=== PATIENT | male | born 1950 | race Caucasian/White ===

== ENCOUNTER → 2018-03-08 09:00 | Outpatient (CLI) | payer OTHER, SELFPAY ==
--- NOTE | 2018-03-09 11:32 | ONE_ITS ---
OCCUPATIONAL MEDICINE OFFICE NOTE DATE OF SERVICE: March 08, 2018 ASSESSMENT: Left shoulder pain. EDUCATION: 1. Good improvement noted. 2. MRI indicated to rule out significant tear that may require surgical intervention. PLAN: 1. Work restrictions per Work Status Form. 2. OTC Advil. 3. Left shoulder MRI. 4. Ativan 1 mg p.o. one hour before MRI. May repeat once with 1 mg if anxiety remains immediately prior to appointment. Script provided. 5. Continue PT. 6. Follow-up Occupational Medicine in 2 weeks; return to clinic sooner if condition worsens. More than 50% of this visit spent in the planning and coordination of care. Plan of care reviewed with patient, who verbalized understanding and agreement. ++++++++++++++++++++ CHIEF COMPLAINT: Left shoulder pain, right hand dominant. 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 SUBJECTIVE: Cody presents for a follow-up appointment for left shoulder pain. Working under work restrictions without difficulty. States he is ten times better compared to his last appointment. Has had approximately six PT appointments, which he thinks have been beneficial; is now able to bring his hand to his mouth. Discomfort is now intermittent and less intense, however if he moves his arm away from his body or over his head the discomfort increases significantly. Self-medicating with two Aleve in the mornings and evenings. Sleep pattern is normal if he sleeps in a chair; his normal sleep position is on his abdomen, which now increases his shoulder discomfort. Sleeping on his back worsens his COPD. Cody does have a history of muscular dystrophy. His left shoulder has always been weaker than his right. His normal posture is stooped over with his shoulder height being uneven. Had routine appointment with his PCP on 03/06/18. REVIEW OF SYSTEMS: Denies chest pain, palpitations. Denies headaches, visual changes. Denies GI, dysfunction. Positive history of shortness of breath. PAST MEDICAL HISTORY Chronic obstructive pulmonary disease. Umbilical hernia surgery x2 around 2004 and 2009. Appendectomy 2017. Eye trauma. Muscular dystrophy for 20 years. Obesity. MEDICATIONS Sertraline for the past six years. ALLERGIES None. SOCIAL HISTORY: Lives with his 90-year-old mother. OBJECTIVE: GENERAL: 67 yo white male. Alert, oriented x3, cooperative. Shoulder height remains significantly unequal, kyphotic posture. LEFT SHOULDER: Bony prominences remain nontender; musculature tenderness now limited to inferiorly of clavicle; regions superiorly of clavicle, periscapular region and anterior deltoid no longer tender. TESTS: Ceron remains positive. RANGE OF MOTION: Extension no longer yields pinching sensation. Abduction and flexion have increased, but is limited to 80 degrees to discomfort. Demonstrated ability to lift 1-pound weight, which yielded slight discomfort; 3-pound increased shoulder discomfort. DIAGNOSTIC IMAGIN02/16/18 left shoulder RAD - no acute fracture or dislocation is seen. Mild degenerative changes are seen at the acromioclavicular joint. The soft tissues are unremarkable. Impression - no acute fracture or dislocation.
== END ==
PROVIDERS: PCP Family Medicine Adult Medicine; Visit Provider Nurse Practitioner Family
DX: M25.512 Pain in left shoulder (principal); M19.012 Primary osteoarthritis, left shoulder; R29.3 Abnormal posture
CPT/HCPCS: 99214

== ENCOUNTER → 2018-03-23 09:38 | Outpatient (CLI) | payer OTHER, SELFPAY ==
--- NOTE | 2018-03-23 16:17 | ONE_ITS ---
DATE OF SERVICE: March 23, 2018 CHIEF COMPLAINT: Left shoulder pain; right hand dominant. 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 ASSESSMENT: Left shoulder pain, rule out rotator cuff tear. EDUCATION: 1. Continued improvement noted. 2. MRI indicated to rule out significant tear that may require surgical intervention. Cody voiced he prefers not to have surgery. PLAN: 1. Work restrictions per Work Status Form. 2. OTC Advil p.r.n. 3. Left shoulder MRI 03/26/18 at 1500. 4. Ativan 1 mg p.o. one hour before MRI. May repeat once with 1 mg if anxiety remains immediately prior to appointment. Transportation required after MRI. 5. Continue PT. 6. Follow-up Occupational Medicine one week; return to clinic sooner if condition worsens. More than 50% of this visit spent in the planning and coordination of care. Plan of care reviewed with patient, who verbalized understanding and agreement. +++++++++++++++++ SUBJECTIVE: Cody presents for follow-up appointment for left shoulder pain. Working under work restrictions without difficulty. Continued improvement noted. Physical therapy has been very helpful. In spite of progress, Cody states he is still unable to use his left upper extremity to pull his seatbelt down in his vehicle. Additionally, he is limited in how far he can move his arm away from his torso without increasing his discomfort. Sleeping in bed is difficult; however he is able to obtain restful sleep in a chair. Last night he awakened only once. Has not been self-medicating with Advil. Cody has a history of muscular dystrophy; his left shoulder has always been weaker than his right. His normal posture is stooped over with his shoulder height being uneven. REVIEW OF SYSTEMS: Denies chest pain, palpitations. Denies headaches, visual changes. Denies GI, dysfunction. Positive history of shortness of breath. PAST MEDICAL HISTORY Chronic obstructive pulmonary disease. Umbilical hernia surgery x2 around 2004 and 2009. Appendectomy 2017. Eye trauma. Muscular dystrophy for 20 years. Obesity. MEDICATIONS Sertraline for the past six years. ALLERGIES None. SOCIAL HISTORY: Lives with his 90-year-old mother. OBJECTIVE: GENERAL: 67-year-old white male. Alert, oriented x3, cooperative. Shoulder height remains significantly unequal with kyphotic posture. LEFT SHOULDER: Musculature tenderness remains limited to inferiorly of clavicle and some discomfort has returned superiorly of clavicle. Periscapular region and anterior deltoid remain nontender. TESTS: Ceron remains positive. ROM and extension without difficulty or discomfort. Abduction and flexion is limited to 30 degrees due to discomfort. Demonstrated ability to lift 1-3-5 pound weight without discomfort; 10 pound yielded slight discomfort.
== END ==
PROVIDERS: PCP Family Medicine Adult Medicine; Visit Provider Nurse Practitioner Family
DX: M25.512 Pain in left shoulder (principal); M19.012 Primary osteoarthritis, left shoulder; R29.3 Abnormal posture
CPT/HCPCS: 99214

== ENCOUNTER → 2018-03-26 01:55 | Outpatient (CLI) | payer OTHER, SELFPAY ==
--- NOTE | 2018-03-26 15:30 | DI.REPORT_ITS ---
SYMPTOM/DIAGNOSIS: LT SHOULDER PAIN, H/O INJURY, DECREASED RANGE OF MOTION LEFT SHOULDER MRI: Comparison is made with plain films dated 02/16/18. Proton density and fat suppressed T 2 axial and coronal and T 1 and fat suppressed T 2 sagittal sequences were performed. There are degenerative changes of the AC joint with prominent spurring projecting greater superiorly. There is a full thickness tear of the supraspinatus tendon with retraction to the level of the acromion. There is some spurring at the undersurface of the acromion. There is supraspinatus muscle atrophy. There is also muscle atrophy involving the infraspinatus which is also torn and retracted to the same level. There is a small joint effusion. The subscapularus tendon appears intact. The short head of the biceps tendon appears intact. There is some thinning of the long head of the biceps tendon which is not well seen on the axial images. There is a moderate sized joint effusion. There are degenerative changes of the labrum, greatest anteriorly and inferiorly. A subchondral cyst is seen in the humeral head. IMPRESSION: Full thickness tears with retraction and muscular atrophy involving the supraspinatus and infraspinatus. The long head of the biceps tendon appears thinned and could be partially torn.
== END ==
PROVIDERS: PCP Family Medicine Adult Medicine; Visit Provider Nurse Practitioner Family
DX: M25.512 Pain in left shoulder (principal); M25.812 Other specified joint disorders, left shoulder; M75.102 Unspecified rotator cuff tear or rupture of left shoulder, not specified as traumatic
CPT/HCPCS: 73221

== ENCOUNTER → 2018-03-30 09:39 | Outpatient (CLI) | payer OTHER, SELFPAY ==
--- NOTE | 2018-04-02 10:01 | ONE_ITS ---
DATE OF SERVICE: March 30, 2018 CHIEF COMPLAINT: Left shoulder pain; right hand dominant. 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 ASSESSMENT: Left rotator cuff tear. PLAN: 1. Work restrictions per Work Status Form. 2. OTC Advil. 3. Ortho referral. 4. Continue PT. 5. Follow-up Occupational Medicine in two weeks; return to clinic sooner if condition worsens. More than 50% of this visit spent in the planning and coordination of care. Plan of care reviewed with patient, who verbalized understanding and agreement. +++++++++++++++++ SUBJECTIVE: On 01/31/18 Cody tripped over a pallet at work and landed on his left shoulder. He was not able to stand without assistance so his co-worker helped him angelita. Cody assessed his shoulder by tapping it and did not think he had done significant harm. Today Cody presents for a follow-up appointment for his left shoulder pain, he has been seen twice previously. He continues to work under work restrictions without difficulty. Continued improvement noted, however he is unable to perform overhead activities with his left upper extremity. Last night was the first night he was able to sleep in his bed. He propped pillows which mimicked a reclining chair. Cody slept throughout the night and this morning he awakened without discomfort and was sleeping in his normal sleep position. Cody does have a history of muscular dystrophy; his left shoulder has always been weaker than his right; his normal posture is stooped over with his shoulder height being uneven. REVIEW OF SYSTEMS: Denies chest pain, palpitations. Denies headaches, visual changes. Denies GI, dysfunction. Positive history of shortness of breath. PAST MEDICAL HISTORY Chronic obstructive pulmonary disease. Umbilical hernia surgery x2 around 2004 and 2009. Appendectomy 2017. Eye trauma. Muscular dystrophy for 20 years. Obesity. MEDICATIONS Sertraline for the past six years. ALLERGIES None. SOCIAL HISTORY: Lives with his 90-year-old mother. OBJECTIVE: Cody is a 67-year-old white male. He is alert, oriented x3 and cooperative. His shoulder height remains significantly unequal and he has a kyphotic posture. We reviewed the findings of the MRI, which indicated a tear. Even though he is not in favor of a surgical repair, I strongly encouraged him to be seen by Ortho so they can properly advise them of the risks and benefits of his decision; Cody was in agreement to see Ortho. The first available appointment for Cody is May 07, 2018. After a discussion with Ortho, they offered to contact Cody to discuss options and hopefully be able to see him earlier than May 07. While awaiting his Ortho appointment, Cody was encouraged to continue with PT to ensure his range of motion does not become restricted from decreased usage and to maintain his strength; Cody was in agreement to continue to see PT. PT was contacted after this appointment to explain the plan of care. A follow-up appointment in Occupational Medicine was given for 04/13/18 to assess if his condition is worsening. His appointment can be cancelled if he has seen Ortho within that timeframe. DIAGNOSTIC IMAGIN03/26/18 left shoulder MRI impression - full-thickness tears with retraction and muscular atrophy involving the supraspinatus and infraspinatus. The long head of the biceps tendon appears thinned and could be partially torn.
== END ==
PROVIDERS: PCP Family Medicine Adult Medicine; Visit Provider Nurse Practitioner Family
DX: M25.512 Pain in left shoulder (principal); M75.102 Unspecified rotator cuff tear or rupture of left shoulder, not specified as traumatic
CPT/HCPCS: 99214

== ENCOUNTER 2018-05-04 08:57 | Emergency (ER) | payer OTHER, SELFPAY ==
[2018-05-04 09:02] VITALS: BP 136/97; PULSE 66; RESP 18; TEMP 36.8
[2018-05-04 09:22] VITALS: BP 132/86; PULSE 71; RESP 16; O2SAT 94
--- NOTE | 2018-05-04 09:46 | W.ED.GENAD ---
Discharge Plan Disposition Patient Disposition: HOME Condition: Improving Discharge Details Chief Complaint: Abd Prob Clinical Impression: Abdominal wall bulge Primary Care Provider: Gadiel Rainey ED Provider: Soco Jenkins Home Meds and New Rx's Prescriptions: Continue albuterol sulfate [ProAir HFA] 90 mcg/actuation HFA aerosol inhaler 1 puff IH QID RF: 0 tiotropium bromide [Spiriva Respimat] 1.25 mcg/actuation mist 2 puff IH DAILY RF: 0 aspirin 81 mg Tablet,Chewable 81 mg PO DAILY RF: 0 Discharge Instructions Instructions: Abdominal Pain (ED), Ventral Hernia (ED) Additional Instructions: You were noted to have a normal abdominal exam today. It is possible that you have a reducible abdominal wall hernia that resolved on its own. If it recurs again, attempt to lay down to see if it resolves again. You can also try ice, Tylenol or Motrin. If it returns and does not resolve or you have significant pain, fever, nausea or vomiting, return immediately to the emergency department. Otherwise follow-up with your primary care doctor in 1 week for reevaluation and for referral to surgery at the [facility] if needed. Referrals: Lindsey Godinez MD [ [facility] STAFF PHYSICIAN] - Discharge Data Discharge Date/Time-TO BE ENTERED AT DEPARTURE: 05/04/18 09:58 Discharge Physician: Soco Jenkins Medical Decision Making Patient is a 67-year-old male with history of COPD, anxiety, depression with previous history of appendectomy 1 year ago, and approximately for inguinal hernia repairs, last occurring 5 years ago who presents with a painful bulge in his left upper abdomen that started at 7:15 AM and is now resolved. States it lasted approximately 2 hours and then resolved and states now I feel foolish that I came here. Vitals within normal limits. He is afebrile with normal heart rate. Patient appears nontoxic and in no acute distress. Abdomen soft and nontender without mass, skin changes, rigidity or tenderness noted. Normal exam. Ambulated patient around the room to see if mass or bulge returned and no change in exam and patient feels good. Explained to patient that with his previous history of abdominal surgeries, a report of a painful bulge in the abdomen does appear most consistent with a hernia. As his symptoms are completely resolved, the hernia likely reduce. Also explained to patient that abdominal pain could possibly be from another source but as his pain is completely resolved I do not see any indication for further lab work or imaging and patient is agreeable and he is requesting to go home. [facility] is followed [facility] the [facility]. He is instructed to follow-up with his primary care doctor at the [facility] and for referral to surgery if he has any further questions or concerns about a possible hernia. He is instructed to lay down, apply ice, and take Motrin or Tylenol if pain or possible hernia returns and to return here immediately to the emergency department if hernia does not reduce, he develops fever, nausea, vomiting or significant pain. HPI General Mode of arrival: ambulatory. Date/Time Provider Initiated Documentation: 05/04/18 09:18. Limitations to Documentation: no limitations. Information obtained by: patient. HPI Narrative: Patient is a 67-year-old male with history of COPD, anxiety, depression with previous history of appendectomy 1 year ago, and approximately for inguinal hernia repairs, last occurring 5 years ago who presents with a painful bulge in his left upper abdomen that started at 7:15 AM and is now resolved. States it lasted approximately 2 hours and then resolved and states now I feel foolish that I came here. He denies fever, nausea, vomiting, diarrhea, chest pain, shortness of breath, rectal bleeding, urinary symptoms. 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 Past medical history: COPD, Anxiety, Depression Surgical history: Appendectomy, Multiple inguinal hernia repairs, L Rotator cuff repair Social history: Former tobacco smoker, Former ETOH use, Denies drugs Meds: Albuterol, aspirin, Spiriva, Symbicort Allergies: None PCP: Mandi NEAL Related Data Home Medications Medication Instructions Recorded Confirmed albuterol sulfate HFA 90 1 puff IH QID 04/30/18 05/04/18 mcg/actuation aerosol inhaler tiotropium bromide 1.25 2 puff IH DAILY 04/30/18 05/04/18 mcg/actuation mist for inhalation aspirin 81 mg PO DAILY 05/04/18 05/04/18 Allergies Allergy/AdvReac Type Severity Reaction Status Date / Time No Known Allergies Allergy Verified 05/04/18 09:07 General Stated Complaint: Abd Prob PANCHO: 3 Review of Systems Review of Systems All systems reviewed & are unremarkable except as noted in HPI and below Constitutional Denies chills, Denies excessive sweating, Denies fatigue, Denies fever(s), Denies weakness and Denies weight loss Eyes Reports system reviewed and no additional complaints, except as docu and Denies blurry vision ENT Denies vertigo, Denies dizziness, Denies otalgia, Denies nasal congestion, Denies sore throat and Denies throat swelling Cardiovascular Denies chest pain, Denies syncope, Denies rapid heart rate and Denies dyspnea Respiratory Denies dyspnea Gastrointestinal Denies abdominal pain, Denies diarrhea and Denies vomiting Genitourinary Denies hematuria, Denies dysuria and Denies flank pain Musculoskeletal Denies back pain and Denies joint swelling Integumentary/Breasts Denies lesions and Denies rash Neurologic Denies behavioral changes, Denies confusion, Denies vertigo, Denies dizziness, Denies syncope and Denies weakness Psychiatric Denies behavioral changes, Denies confusion and Denies depression Endocrine Denies excessive sweating and Denies fatigue Hematologic/Lymphatic Denies easy bruising and Denies lymphadenopathy Allergic/Immunologic Denies throat swelling PFSH Medical History Fascioscapulohumeral muscular dystrophy (Chronic) Anxiety and depression (Acute) Eye trauma (Acute) Muscular dystrophy (Acute) Overweight (Acute) Umbilical hernia (Acute) COPD (chronic obstructive pulmonary disease) (Chronic) Social History lives independently: Yes 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 Smoking/Tobacco Use Status: Former Tobacco Use how long ago did patient quit smokin alcohol intake: former details: quit 1987 Surgical History History of appendectomy (Chronic) Exam Const General: cooperative and healthy appearing Orientation: alert and awake [facility] Head: normal to inspection Ears: hearing grossly normal bilaterally, external ears normal and TM's normal bilaterally General nose exam: external nose normal Face and sinus: normal facial exam Mouth: oral mucosae normal Teeth and gingiva: dentition normal Throat: posterior oropharynx normal Eyes General: appearance normal, both eyes and all related structures Eyelids: eyelids normal Pupils: PERRL EOM: EOM intact bilaterally Neck Neck: normal visual inspection Lymphatic: no lymphadenopathy noted Chest Chest: normal inspection of the chest Resp Effort & Inspection: normal respiratory effort and able to speak in complete sentences Auscultation: clear to auscultation bilaterally Cardio Rate: regular rate Rhythm: regular rhythm GI Inspection: normal to inspection, no edema, scar (Midline abdominal scar just above umbilicus.) and other (No skin changes noted, no erythema, ecchymosis, red streaking) Palpation: soft, not firm, no guarding, no hepatosplenomegaly, no hernias, no masses, no pulsatile masses, not rigid and nontender Auscultation: normal bowel sounds Penis: normal penis Scrotum: scrotum normal Testes: normal, no masses, no testicular mass and no testicular swelling Back/Spine/Pelvis Back: no CVA tenderness Skin General skin exam: no rashes or lesions noted Neuro General: alert and awake Cognition: normal cognition Speech: speech normal Gait: normal gait Motor: muscle tone normal throughout Sensory Exam: no sensory deficits noted Extrem General: normal to inspection, full ROM and normal capillary refill Psych Appearance: grossly normal Mental Status: mental status grossly normal Speech and Movement: speech and movement normal Affect: normal affect Thought Process: normal Course Vital Signs Temperature 98.2 F 05/04/18 09:02 Pulse 66 05/04/18 09:02 Respiratory Rate 18 05/04/18 09:02 Blood Pressure 136/97 H 05/04/18 09:02 Temperature 98.2 F 05/04/18 09:02 Temperature Source Temporal Artery Scan 05/04/18 09:22 Pulse 71 05/04/18 09:22 Respiratory Rate 16 05/04/18 09:22 Respiratory Effort 05/04/18 09:05 Blood Pressure 132/86 05/04/18 09:22 Blood Pressure Position Supine 05/04/18 09:02 Pulse Oximetry 94 L 05/04/18 09:22 Oxygen Delivery Method Room Air 05/04/18 09:22 Oxygen Flow Rate 0 05/04/18 09:22 Pain Level 6 05/04/18 09:02
[2018-05-04 09:47] VITALS: TEMP 37
[2018-05-04 09:55] VITALS: BP 135/80; PULSE 88; RESP 18; TEMP 36.8; O2SAT 99
== END 2018-05-04 09:58 | disposition home or self-care (01) ==
PROVIDERS: Emergency Provider Physician Assistant; PCP Family Medicine Adult Medicine
DX: R19.02 Left upper quadrant abdominal swelling, mass and lump (principal); J44.9 Chronic obstructive pulmonary disease, unspecified; Z87.891 Personal history of nicotine dependence
CPT/HCPCS: 99282

== ENCOUNTER 2020-03-09 23:24 | Emergency (ER) | payer OTHER, SELFPAY ==
[2020-03-09 23:27] VITALS: BP 115/58; PULSE 87; RESP 16; TEMP 36.7; O2SAT 93
--- NOTE | 2020-03-09 23:30 | DI.CT_ITS ---
EXAM: CT ABDOMEN PELVIS W CLINICAL HISTORY: hard R paraumbilical hernia. r/o strangulation TECHNIQUE: COMPARISON: No exams were available for comparison FINDINGS: CT examination of the abdomen and pelvis was performed with bolus infusion of 100 cc of Omnipaque 350 . Images obtained through the lung bases show mild cardiomegaly and coronary artery calcification. There are areas of atelectasis in the left lung base. There is marked gastric distention and marked fluid-filled distention of proximal to mid small bowel. There is a ventral hernia in the right lower quadrant and this appears to cause a small bowel obstr uction. The efferent loop is nondilated and the afferent loop is markedly dilated. No evidence of p erforation. No necrotic bowel seen. Colon contains small amount of fecal material. There are multiple bilateral renal cysts and multiple nonobstructing left renal calculi. No urinary tract obstruction. Abdominal aorta is of normal diameter and no major vascular abnormality is seen. Liver and spleen appear normal as does the pancreas. Gallbladder and bile ducts are CT normal. No significant abdominal or pelvic adenopathy. Appendix has probably been surgically removed as there are multiple vascular clips clips at the expec karlee site of the appendix. IMPRESSION: Mechanical small-bowel obstruction at the level of a right para median ventral hernia. Please see ab bolivar discussion.
--- NOTE | 2020-03-09 23:35 | ED.GENADUL_ITS ---
Discharge Plan Disposition Patient Disposition: [facility] INPATIENT Condition: Stable Discharge Details Chief Complaint: Abd Prob Clinical Impression: Incarcerated hernia, Small intestine obstruction Primary Care Provider: Gadiel Rainey ED Provider: Jovan Barraza Home Meds and New Rx's Prescriptions: No Action albuterol sulfate [ProAir HFA] 90 mcg/actuation HFA aerosol inhaler 1 puff IH QID RF: 0 Spiriva Respimat 1.25 mcg/actuation mist 2 puff IH DAILY RF: 0 aspirin 81 mg Tablet,Chewable 81 mg PO DAILY RF: 0 sertraline 25 mg Tablet 75 mg PO DAILY RF: 0 Medical Decision Making 69-year-old male with a past medical history of appendectomy, previous inguinal hernias that were surgically repaired, and known umbilical hernias, presents today for evaluation of right sided umbilical pain. Patient states that roughly 7 to 8 hours ago he was at a gas station when he felt a sudden bit of sharp pain in the right paraumbilical region. He had a lump there in the past for some time, but it was never painful and it would always come and go. Since then he has had continued pain, worsening throughout the night, no bowel movements, no episodes of vomiting either though. He is only eaten a cookie all day long. He denies any other complaints at this time. No aggravating or relieving factors. Physical exam demonstrates a notably firm tender nonreducible mass the right aspect of the periumbilical region. It is not erythematous, it is not atypically hot. However upon trial for reduction it is notably sore. Concern for strangulated or incarcerated hernia. Will treat with pain medications, apply ice, place the patient in Trendelenburg, get a CT scan, monitor closely and reassess. 1:13 AM After NSAIDs and morphine the patient is resting very comfortably. Still completely unable to reduce the hernia after multiple attempts ice and Trendelenburg. CT scan results have returned and do demonstrate evidence of mild fat stranding, and incarcerated hernia with obstruction proximally in the bowel and no dilatation distally. Patient remained stable and has kept down his contrast fluid. Vital signs and laboratory work-up is otherwise unremarkable, lactate normal. I did contact the surgeon on-call Dr. Godinez, she states that she will come in to see and assess the patient. [facility], but does make clear that he would prefer to stay here. [facility] to make [facility] aware [facility] this, they have agreed with him stay here at this time. 2:01 AM Patient has been seen and assessed by Dr. Godinez, the patient will be taken to the OR for expected surgery. I have extensively reviewed the treatment plan with the patient. I have addressed all patient concerns at this time. I have also discussed the plan with the admitting physician and they agree with the current assessment and plan and have agreed to assume responsibility for the patient. All parties demonstrate verbal understanding and agreement with our assessment and plan at this time. FINDINGS: Liver: No focal hepatic lesions detected. Gallbladder and bile ducts: Unrtemarkable with no calcified stone or ductal dilatation detected. Pancreas: No pancreatic mass or ductal dilation. Spleen: No splenomegaly or splenic mass. Adrenals: No adrenal mass. Kidneys and ureters: A large exophytic fluid attenuation cyst measuring over 11 cm in maximal dimension is seen along the posterolateral margin of the left kidney multiple smaller discrete fluid attenuation cysts renal cysts seen bilaterally. Few calcified 1-3 mm nonobstructing stones are also seen in the left pelvocaliceal system and there is no right or left-sided hydronephrosis detected. Stomach and bowel: Multiple fluid-filled segments of small bowel show abnormal dilatation throughout the abdomen and pelvis measuring up to 4.8 cm in diameter with multiple associated air-fluid levels, and there is a focal right periumbilical hernia defect with a small segment of distal small bowel seen extending through this defect (see image 78, series 7). Gas and stool is seen th roughout nondilated segments of colon with no other abnormal bowel dilatation detected. Stomach and bowel: Unremarkable. No obstruction. No mucosal thickening. Appendix: Surgically absent. Intraperitoneal space: No pneumoperitoneum or free intraperitoneal fluid detected. Vasculature: No abdominal aortic aneurysm Lymph nodes: No lymphadenopathy detected. Bladder: Unremarkable as visualized. Reproductive: Unremarkable as visualized. Bones/joints: No acute osseous lesions are detected. Soft tissues: Unremarkable. IMPRESSION: 1. Focal right periumbilical hernia defect is identified with a short segment of the distal small bowel extending through this defect and associated with mechanical small bowel obstruction. There is no evidence of pneumatosis or perforation at this time. 2. Bilateral renal cysts and a few calcified nonobstructing left-sided renal stones are identified with no solid renal mass or hydronephrosis detected. Thank you for allowing us to participate in the care of your patient. Dictated and Authenticated by: Angelo Jean-Baptiste MD 03/10/2020 1:08 AM Eastern Time ([place] & [place]) HPI General Date/Time Provider Initiated Documentation: 03/09/20 23:26 . HPI Narrative: 69-year-old male with a past medical history of appendectomy, previous inguinal hernias that were surgically repaired, and known umbilical hernias, presents today for evaluation of right sided umbilical pain. Patient states that roughly 7 to 8 hours ago he was at a gas station when he felt a sudden bit of sharp pain in the right paraumbilical region. He had a lump there in the past for some time, but it was never painful and it would always come and go. Since then he has had continued pain, worsening throughout the night, no bowel movements, no episodes of vomiting either though. He is only eaten a cookie all day long. He denies any other complaints at this time. No aggravating or relieving factors. Related Data Home Medications Medication Instructions Recorded Confirmed albuterol sulfate 90 mcg/actuation 1 puff IH QID 04/30/18 03/10/20 aerosol inhaler tiotropium bromide 1.25 2 puff IH DAILY 04/30/18 03/10/20 mcg/actuation mist for inhalation aspirin 81 mg PO DAILY 05/04/18 03/10/20 sertraline 75 mg PO DAILY 03/10/20 03/10/20 Allergies Allergy/AdvReac Type Severity Reaction Status Date / Time No Known Allergies Allergy Verified 03/09/20 23:59 General Stated Complaint: Abd Prob PANCHO: 3 Review of Systems All systems reviewed & are unremarkable except as noted in HPI and below [facility] Medical History Anxiety and depression (Acute) COPD (chronic obstructive pulmonary disease) (Chronic) Eye trauma (Acute) Fascioscapulohumeral muscular dystrophy (Chronic) Muscular dystrophy (Acute) Overweight (Acute) Umbilical hernia (Acute) Surgical History History of appendectomy (Chronic) Social History Smoking/Tobacco Use Status: Former Tobacco Use Alcohol Intake: former Details: quit 1987 Drug use: Never Substance use type: does not use 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 3.ENT: Atraumatic external nose and ears. Moist MM. Neck: Symmetric, trachea midline, No thyromegaly. 4.CVS: +S1/S2, No murmurs or gallops. Peripheral pulses 2+ and equal in all extremities. Brisk capillary refill in all extremities. 5.RESP: Unlabored respiratory effort. Clear to auscultation bilaterally. No wheezes rales or rhonchi 6.GI: Soft, nondistended, 2-3 small lumps periumbilically, all of which are soft and nontender aside for the right paraumbilical lump, which appears to be roughly 2 to 3 cm in diameter, notably firm, nonreducible, tender to palpation with no associated redness. No atypical warmth. 7.MSK: Normocephalic/Atraumatic, Extremities w/o deformity or ttp No cyanosis or clubbing, Normal movement of all extremities 8.Skin: Warm, Dry. No rashes or lesions. 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 Sensation grossly intact, no focal neurologic deficits. 10.Psych: (AAO) x3. Appropriate mood and affect Course Vital Signs Vital signs: Vital Signs Temperature 36.7 C 03/09/20 23:27 Pulse 87 03/09/20 23:27 Respiratory Rate 16 03/09/20 23:27 Blood Pressure 115/58 L 03/09/20 23:27 Pulse Oximetry 93 L 03/09/20 23:27 Temperature 36.7 C 03/09/20 23:27 Temperature Source Temporal Artery Scan 03/09/20 23:27 Pulse 87 03/09/20 23:27 Respiratory Rate 16 03/09/20 23:27 Blood Pressure 115/58 L 03/09/20 23:27 Blood Pressure Position Sitting 03/09/20 23:27 Pulse Oximetry 93 L 03/09/20 23:27 Oxygen Delivery Method Room Air 03/09/20 23:27 Oxygen Flow Rate 0 03/09/20 23:27
[2020-03-09 23:46] LABS: Lactate 0.5 mmol/L (0.6-1.4)
[2020-03-09] MEDS: Normal Saline 500 ML IV (23:47)
[2020-03-09] MEDS: Acetaminophen 500 MG TAB 1000 MG PO (23:47)
[2020-03-09 23:48] LABS: Abs Immature Grans 0.03 10^3/uL (0.0-0.06); Absolute Basophil Count 0.02 10^3/uL (0.0-0.2); Absolute Eosinophil Count 0.17 10^3/uL (0.0-0.7); Absolute Lymphocyte Count 0.93 10^3/uL (1.2-3.4); Absolute Monocyte Count 0.75 10^3/uL (0.1-0.8); Absolute Neutrophil Count 5.11 10^3/uL (1.2-6.7); Basophils % 0.3; Eosinophils % 2.4; HCT 47.1 % (40.0-50.0); HGB 15.5 g/dL (13.5-17.5); Immature Grans % 0.4; Lymphocytes % 13.3; MCH 31.8 pg (27.0-33.0); MCHC 32.9 % (32.0-36.0); MCV 96.7 fL (80-95); MPV 10.3 fL (8.0-11.0); Monocytes % 10.7; Neutrophils % 72.9; Platelet Count 170 10^3/uL (130-400); RBC 4.87 10^6/uL (4.36-5.78); RDW 13.4 % (11.8-14.1); RDW-SD 47.8 fL; WBC 7.01 10^3/uL (4.4-10.8)
[2020-03-10] VITALS (13 sets, daily range): BP systolic 113–125; BP diastolic 69–90; PULSE 56–65; RESP 14; O2SAT 91–96
[2020-03-10 00:03] LABS: ALT 38 U/L (16-63); AST 31 U/L (15-37); Albumin 4.1 g/dL (3.4-5.0); Alkaline Phosphatase 68 U/L (46-116); Anion Gap 8.8 mmol/L (3-11); BUN 20 mg/dL (7-18); Bilirubin, Total 0.9 mg/dL (0.2-1.0); CO2 28.2 mmol/L (21.0-32.0); CREATININE 0.71 mg/dL (0.70-1.30); Calcium 9.5 mg/dL (8.5-10.1); Chloride 104 mmol/L (98-107); Glucose 114 mg/dL (74-106); Potassium 4.3 mmol/L (3.5-5.1); Sodium 141 mmol/L (136-145)
[2020-03-10] MEDS: Omnipaque 350 MG/ML 50 ML BTL IJ (00:13)
[2020-03-10] MEDS: Normal Saline - Diluent 50 ML VIAL IV (00:14)
[2020-03-10] MEDS: Omnipaque 350 MG/ML 100 ML BTL IJ (00:14)
[2020-03-10 00:17] LABS: INR 1.1 (0.9-1.1); PTT Activated 26.1 sec (21.0-31.4); Prothrombin Time 10.7 sec (9.3-11.0)
[2020-03-10] MEDS: Ondansetron 4 MG/2 ML VIAL IVP (00:27)
[2020-03-10] MEDS: Breeza Beverage 473 ML BTL PO (00:39)
--- NOTE | 2020-03-10 01:08 | DI.VRAD_ITS ---
Addendum created by Angelo Jean-Baptiste MD on 03/10/2020 1:08:13 AM EDT THIS REPORT CONTAINS FINDINGS THAT MAY BE CRITICAL TO PATIENT CARE. The findings were verbally communicated via telephone conference with RENO IVNCENT at 1:08 AM EDT on 03/10/2020. The findings were acknowledged and understood. Initial report created on 03/10/2020 1:08:01 AM EDT PROCEDURE INFORMATION: Exam: CT Abdomen And Pelvis With Contrast Exam date and time: 03/09/2020 11:34 PM Age: 69 years old Clinical indication: Abdominal pain; Other: Paraumbilical hernia ? strangulation; Prior surgery; Surgery date: 6+ months; Surgery type: Multiple hernia surgeries. And appendectomy years ago TECHNIQUE: Imaging protocol: Computed tomography of the abdomen and pelvis with intravenous contrast. Radiation optimization: All CT scans at this facility use at least one of these dose optimization techniques: automated exposure control; mA and/or kV adjustment per patient size (includes targeted exams where dose is matched to clinical indication); or iterative reconstruction. Contrast material: OMNI 350; Contrast volume: 100 ml; Contrast route: INTRAVENOUS (IV); Other contrast: Oral, omni 350 , 50; COMPARISON: No relevant prior studies available. FINDINGS: Liver: No focal hepatic lesions detected. Gallbladder and bile ducts: Unrtemarkable with no calcified stone or ductal dilatation detected. Pancreas: No pancreatic mass or ductal dilation. Spleen: No splenomegaly or splenic mass. Adrenals: No adrenal mass. Kidneys and ureters: A large exophytic fluid attenuation cyst measuring over 11 cm in maximal dimension is seen along the posterolateral margin of the left kidney multiple smaller discrete fluid attenuation cysts renal cysts seen bilaterally. Few calcified 1-3 mm nonobstructing stones are also seen in the left pelvocaliceal system and there is no right or left-sided hydronephrosis detected. Stomach and bowel: Multiple fluid-filled segments of small bowel show abnormal dilatation throughout the abdomen and pelvis measuring up to 4.8 cm in diameter with multiple associated air-fluid levels, and there is a focal right periumbilical hernia defect with a small segment of distal small bowel seen extending through this defect (see image 78, series 7). Gas and stool is seen throughout nondilated segments of colon with no other abnormal bowel dilatation detected. Stomach and bowel: Unremarkable. No obstruction. No mucosal thickening. Appendix: Surgically absent. Intraperitoneal space: No pneumoperitoneum or free intraperitoneal fluid detected. Vasculature: No abdominal aortic aneurysm Lymph nodes: No lymphadenopathy detected. Bladder: Unremarkable as visualized. Reproductive: Unremarkable as visualized. Bones/joints: No acute osseous lesions are detected. Soft tissues: Unremarkable. IMPRESSION: 1. Focal right periumbilical hernia defect is identified with a short segment of the distal small bowel extending through this defect and associated with mechanical small bowel obstruction. There is no evidence of pneumatosis or perforation at this time. 2. Bilateral renal cysts and a few calcified nonobstructing left-sided renal stones are identified with no solid renal mass or hydronephrosis detected. Dictated and Authenticated by: Angelo Jean-Baptiste MD. Ordering:REEMA Aldana MD
--- NOTE | 2020-03-10 01:17 | NUR.NOTE ---
Nursing Note: Patient placed on 2L of oxygen via nasal cannula as sats hold at 88% with rest at this time. Patient does report painful to breath. Dr Barraza notified.
[2020-03-10] MEDS: AMPICILLIN/SULBACTAM 3 GM in Normal Saline 100 ML IVPB (02:25)
--- NOTE | 2020-03-10 02:27 | W.PM.HP.N ---
Date of service: 03/10/20 Time of Service: 02:28 Assessment and Plan Assessment and plan (1) Incarcerated hernia: Status: Acute Assessment and plan: A\\ 69 year old male with a recurrent umbilical hernia which is incarcerated. He doesnt remember if he had a mesh placed. CT scan shows dilated small bowel up to the hernia defect. There is decompressed bowel after the hernia. There is no pneumatosis or fluid around the bowel within the hernia and his Lactate is normal Unfortunately patient has an EF of 34% on his ECHO from December/2019 and has hx of severe COPD. 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 He is a high risk patient and I feel he needs to be transfered to the [facility] or [facility]. This was discussed with the patient and I am waiting for a call back from the [facility]. The [facility] surgeon declined transfer as they have no cardiology at night. Called [facility] and they have graciously accepted the patient in transfer. Transfer discussed with the patient and he agrees with transfer (2) COPD (chronic obstructive pulmonary disease): Status: Chronic Assessment and plan: A\\ Severe COPD on several inhalors. Patient has prolonged expiration while breathing Qualifiers: COPD type: unspecified COPD Qualified Code(s): J44.9 - Chronic obstructive pulmonary disease, unspecified (3) Left heart failure with left ejection fraction 30-40 percent: Status: Acute Assessment and plan: A\\ ECHO from December 2019 showes Mitral regurge, low EF of 34% with severe dilatation of his left ventricle. History of Present Illness History of Present Illness Chief Complaint: incarcerated hernia Consults Consult date: 03/10/20 Requesting physician: Jovan Barraza Narrative: Mr. Foster is a pleasant 69 year old male who comes in today with abdominal pain. He has had multiple hernia repairs in the past. He thinks he has mesh in place. He started to have pain today. He denies any Nausea or Vomiting. His PMHx is significant for Cardiomyopathy. Per patient the bottom of my heart is big. He tells me that he had a resent ECHO and is going to have another one in the near future. He is on a medicine for his heart, but can't remember the name. He also has severe COPD. He is pursing his lips to breath. His PSHx is significant for Laparoscopic appendectomy, inguinal hernia repairs and umbilical repair. Labs are unremarkable. Lactate is normal and he has no elevated WBC count CT scan: PROCEDURE INFORMATION: Exam: CT Abdomen And Pelvis With Contrast Exam date and time: 03/09/2020 11:34 PM Age: 69 years old Clinical indication: Abdominal pain; Other: Paraumbilical hernia ? strangulation; Prior surgery; Surgery date: 6+ months; Surgery type: Multiple hernia surgeries. And appendectomy years ago TECHNIQUE: Imaging protocol: Computed tomography of the abdomen and pelvis with intravenous contrast. Radiation optimization: All CT scans at this facility use at least one of these dose optimization techniques: automated exposure control; mA and/or kV adjustment per patient size (includes targeted exams where dose is matched to clinical indication); or iterative reconstruction. Contrast material: OMNI 350; Contrast volume: 100 ml; Contrast route: INTRAVENOUS (IV); Other contrast: Oral, omni 350 , 50; COMPARISON: No relevant prior studies available. FINDINGS: Liver: No focal hepatic lesions detected. Gallbladder and bile ducts: Unrtemarkable with no calcified stone or ductal dilatation detected. Pancreas: No pancreatic mass or ductal dilation. Spleen: No splenomegaly or splenic mass. Adrenals: No adrenal mass. Kidneys and ureters: A large exophytic fluid attenuation cyst measuring over 11 cm in maximal dimension is seen along the posterolateral margin of the left kidney multiple smaller discrete fluid attenuation cysts renal cysts seen bilaterally. Few calcified 1-3 mm nonobstructing stones are also seen in the left pelvocaliceal system and there is no right or left-sided hydronephrosis detected. Stomach and bowel: Multiple fluid-filled segments of small bowel show abnormal dilatation throughout the abdomen and pelvis measuring up to 4.8 cm in diameter with multiple associated air-fluid levels, and there is a focal right periumbilical hernia defect with a small segment of distal small bowel seen extending through this defect (see image 78, series 7). Gas and stool is seen throughout nondilated segments of colon with no other abnormal bowel dilatation detected. Stomach and bowel: Unremarkable. No obstruction. No mucosal thickening. Appendix: Surgically absent. Intraperitoneal space: No pneumoperitoneum or free intraperitoneal fluid detected. Vasculature: No abdominal aortic aneurysm Lymph nodes: No lymphadenopathy detected. Bladder: Unremarkable as visualized. Reproductive: Unremarkable as visualized. Bones/joints: No acute osseous lesions are detected. Soft tissues: Unremarkable. IMPRESSION: 1. Focal right periumbilical hernia defect is identified with a short segment of the distal small bowel extending through this defect and associated with mechanical small bowel obstruction. There is no evidence of pneumatosis or perforation at this time. 2. Bilateral renal cysts and a few calcified nonobstructing left-sided renal stones are identified with no solid renal mass or hydronephrosis detected Review of Systems Constitutional Constitutional: Denies fatigue, Denies fever(s) and Denies headache(s) Eyes Eyes: Denies change in vision ENT Ears, Nose, Mouth, and Throat: Denies dysphagia, Denies headache(s) and Denies hoarseness Cardiovascular Cardiovascular: Reports as per HPI Respiratory Respiratory: Reports as per HPI Gastrointestinal Gastrointestinal: Reports as per HPI and Denies dysphagia Genitourinary Genitourinary: Denies oliguria and Denies difficulty urinating Musculoskeletal Musculoskeletal: Reports system reviewed and no additional complaints, except as documented Integumentary/Breasts Skin/Breast: Reports system reviewed and no additional complaints, except as documented Neurologic Neurologic: Reports system reviewed and no additional complaints, except as documented and Denies headache(s) Psychiatric Psychiatric: Reports system reviewed and no additional complaints, except as documented Endocrine Endocrine: Reports system reviewed and no additional complaints, except as documented and Denies fatigue Hematologic/Lymphatic Hematologic/Lymphatic: Reports system reviewed and no additional complaints, except as documented [facility] Medical History (Updated 03/10/20 @ 03:07 by Lindsey Godinez MD) Acquired talipes planus (Acute) Anxiety and depression (Acute) BPH without urinary obstruction (Acute) COPD (chronic obstructive pulmonary disease) (Chronic) Dystrophia unguium (Acute) Eye trauma (Acute) 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) Left heart failure with left ejection fraction 30-40 percent (Acute) Left rotator cuff tear (Inactive) DOI: 01/31/18 Left rotator cuff tear arthropathy (Inactive) Mitral regurgitation (Chronic) Muscular dystrophy (Acute) Neuropathy (Acute) Other intervertebral disc degeneration, lumbosacral region (Acute) Overweight (Acute) Umbilical hernia (Acute) Surgical History (Updated 03/10/20 @ 03:07 by Lindsey Godinez MD) History of appendectomy (Chronic) History of incisional hernia repair (Acute) S/P bilateral inguinal hernia repair (Inactive) Social History Smoking/Tobacco Use Status: Former Tobacco Use Alcohol Intake: former Details: quit 1987 Drug use: Never Substance use type: does not use 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 Do you feel safe at home: Yes Do you feel safe in your relationship?: Yes Meds Home Medications and Allergies Home Medications Medication Instructions Recorded Confirmed Type albuterol sulfate 90 mcg/actuation 1 puff IH QID 04/30/18 03/10/20 History aerosol inhaler aspirin 81 mg PO DAILY 05/04/18 03/10/20 History alfuzosin 10 mg PO DAILY 03/10/20 03/10/20 History budesonide-formoterol 2 puff INHALATION BID 03/10/20 03/10/20 History furosemide 20 mg PO DAILY 03/10/20 03/10/20 History ipratropium-albuterol 3 ml INHALATION TID PRN 03/10/20 03/10/20 History lanolin [id number]-jj-p.pet-ceres 1 applic TOPICAL BID PRN 03/10/20 03/10/20 History [Eucerin] lisinopril 5 mg PO DAILY 03/10/20 03/10/20 History metoprolol succinate 25 mg PO DAILY 03/10/20 03/10/20 History sertraline 75 mg PO DAILY 03/10/20 03/10/20 History tiotropium bromide 2 puff INHALATION DAILY 03/10/20 03/10/20 History Allergies Allergy/AdvReac Type Severity Reaction Status Date / Time No Known Allergies Allergy Verified 03/09/20 23:59 Exam Const General: cooperative, comfortable and no acute distress Orientation: alert, awake and oriented x3 HENMT Head: normocephalic and atraumatic Eyes Pupils: PERRL Resp Effort & Inspection: normal respiratory effort Auscultation: clear to auscultation bilaterally Cardio Rate: regular rate Rhythm: regular rhythm Heart Sounds: no gallops, no murmurs and no rubs GI Inspection: scar and visible herniation Palpation: soft and tender (over the hernia) Auscultation: normal bowel sounds General: deferred Results Labs Result diagrams: 03/09/20 23:32 03/09/20 23:40 Labs: Laboratory Results - last 24 hr 03/09/20 03/09/20 03/09/20 23:32 23:40 23:40 WBC 7.01 RBC 4.87 Hgb 15.5 Hct 47.1 MCV 96.7 H MCH 31.8 MCHC 32.9 RDW 13.4 Plt Count 170 MPV 10.3 Immature Gran % 0.4 Neutrophils % 72.9 Lymphocytes % 13.3 Monocytes % 10.7 Eosinophils % 2.4 Basophils % 0.3 Absolute Neutrophils 5.11 Absolute Lymphocytes 0.93 L Absolute Monocytes 0.75 Absolute Eosinophils 0.17 Absolute Basophils 0.02 PT INR APTT Sodium 141 Potassium 4.3 Chloride 104 Carbon Dioxide 28.2 Anion Gap 8.8 BUN 20 H Creatinine 0.71 Estimated GFR/1.73 m2 >= 60.00 Glucose 114 H Lactate 0.5 L Calcium 9.5 Total Bilirubin 0.9 AST 31 ALT 38 Alkaline Phosphatase 68 Total Protein 7.0 Albumin 4.1 03/09/20 23:40 WBC RBC Hgb Hct MCV MCH MCHC RDW Plt Count MPV Immature Gran % Neutrophils % Lymphocytes % Monocytes % Eosinophils % Basophils % Absolute Neutrophils Absolute Lymphocytes Absolute Monocytes Absolute Eosinophils Absolute Basophils PT 10.7 INR 1.1 APTT 26.1 Sodium Potassium Chloride Carbon Dioxide Anion Gap BUN Creatinine Estimated GFR/1.73 m2 Glucose Lactate Calcium Total Bilirubin AST ALT Alkaline Phosphatase Total Protein Albumin Last Vital Signs Temp 98.1 F 03/09/20 23:27 Pulse 64 03/10/20 02:07 Resp 14 03/10/20 00:30 BP 122/90 03/10/20 02:07 Pulse Ox 95 03/10/20 02:07 COVID-19 Screening Have you,or household,traveled outside [place] in last 14 days?: No Had IN PERSON contact w/suspected or confirmed C-19 person: No
[2020-03-10 03:59] LABS: Bilirubin Negative (Negative); Blood Negative (Negative); Clarity Clear (Clear); Glucose Negative (Negative); Ketones Negative (Negative); Leukocyte Esterase Negative (Negative); Nitrite Negative (Negative); Specific Gravity 1.015 (1.005-1.025); Urobilinogen 0.2 EU/dL (Up TO 0.2); pH 5.5 (5-8)
[2020-03-10 04:01] LABS: Bacteria Negative HPF (Negative); Casts Negative LPF (Negative); Crystals Negative HPF (Negative); Epithelial Cells Rare HPF (Negative); Mucus Negative (Negative); RBC Negative HPF (0-2); WBC Negative HPF (0-5)
[2020-03-10 04:02] LABS: C & S Indicated? No
[2020-03-10 12:42] LABS: COVID-19 RT-PCR UVMMC Result Negative (Negative)
== END 2020-03-10 04:04 | disposition short-term general hospital (02) ==
PROVIDERS: Emergency Provider Student in an Organized Health Care Education/Training Program; PCP Family Medicine Adult Medicine
DX: K42.0 Umbilical hernia with obstruction, without gangrene (principal); Z11.59 Encounter for screening for other viral diseases; G71.02 Facioscapulohumeral muscular dystrophy; J44.9 Chronic obstructive pulmonary disease, unspecified; Z87.891 Personal history of nicotine dependence
CPT/HCPCS: 36415; 80053; 96361; 96365; 96375; 99223; 99285; U0003; 74177; 81003; 81015; 83605; 85025; 85610; 85730; J0295; J2405; J3490; Q9967

== ENCOUNTER 2020-03-20 08:25 | Emergency (ER) | payer OTHER, SELFPAY ==
[2020-03-20] VITALS (44 sets, daily range): BP systolic 82–126; BP diastolic 28–84; PULSE 70–110; RESP 13–27; TEMP 36.6; O2SAT 89–96
--- NOTE | 2020-03-20 08:46 | ED.GENADUL_ITS ---
Discharge Plan Disposition Patient Disposition: [facility] Condition: Serious Discharge Details Chief Complaint: Abd Prob Clinical Impression: Small intestine obstruction, Abdominal wall hernia, Pneumonia Primary Care Provider: Jackeline Ramesh ED Provider: Sina Bautista Home Meds and New Rx's Prescriptions: No Action albuterol sulfate [ProAir HFA] 90 mcg/actuation HFA aerosol inhaler 1 puff IH QID RF: 0 aspirin 81 mg Tablet,Chewable 81 mg PO DAILY RF: 0 acetaminophen 500 mg Tablet 500 mg PO PRN PRNRF: 0 hydromorphone [Dilaudid] 2 mg Tablet 2 mg PO PRN PRNRF: 0 sertraline 25 mg Tablet 75 mg PO DAILY RF: 0 ipratropium-albuterol 0.5 mg-3 mg(2.5 mg base)/3 mL Solution For Nebulization 3 ml INHALATION TID PRNRF: 0 lisinopril 5 mg Tablet 5 mg PO DAILY RF: 0 furosemide 20 mg Tablet 20 mg PO DAILY RF: 0 metoprolol succinate 25 mg Tablet Extended Release 24 Hr 25 mg PO DAILY RF: 0 alfuzosin 10 mg Tablet Extended Release 24 Hr 10 mg PO DAILY RF: 0 budesonide-formoterol 160-4.5 mcg/actuation Hfa Aerosol Inhaler 2 puff INHALATION BID RF: 0 Eucerin Cream 1 applic TOPICAL BID PRNRF: 0 tiotropium bromide 2.5 mcg/actuation Mist 2 puff INHALATION DAILY RF: 0 Medical Decision Making <AAYUSH Hansen - Last Filed: 03/20/20 12:23> 69-year-old gentleman with history of left heart failure, COPD, muscular dystrophy, recent abdominal surgery performed at [facility] presents for evaluation of ongoing abdominal pain and home care noted low blood pressures. He appears well, nontoxic. Initial blood pressure 95/59. He denies any weakness or dizziness. Does not seem to be symptomatic secondary to his hypotension. Abdomen is certainly tender, decreased bowel sounds, mild distention. Incision site appears to be normal. Drain present, draining a small amount of serous- bloody drainage. Given his recent surgical history will obtain IV access, give IV fluids, obtain routine laboratory values including a lactate and CT abdomen and pelvis with contrast. Initial laboratory values reveal a white count of 15.11 hemoglobin 14.4 hematocr it 44.3 platelet count 306. INR 1.1. Electrolytes unremarkable. Glucose 118. Creatinine 0.73 with a GFR greater than 60. Lactate 0.8 calcium 9.0 LFTs unremarkable. Urinalysis unremarkable as well. CT imaging read by radiology reveals a small left pleural effusion and a bilateral basilar infiltrate suspicion for pneumonia. Interval postsurgical changes of small bowel resection. Small bowel dilatation proximal to the anastomosis suggesting a small bowel obstruction. Anterior abdominal wall hernia containing small bowel. There was question of mild wall thickening of the involved small bowel. Small amount of abdominal pelvic ascites. Anasarca. Discussed CT findings with patient. His report increased pain and anxiety. He reports that his transfer to [facility] the other day was very uncomfortable in the ambulance. Will give 1 mg IV Ativan and morphine. We will also place NG tube. Given the CT findings, blood cultures were obtained and I initiated Rocephin IV therapy. Given patient had surgery at [facility] and discharge just 4 days ago, will reach out to [facility] for likely transfer. Repeat blood pressure 123/74 I initially spoke with surgery, Dr. Frias, who felt as though transfer was appropriate but requested an ER to ER transfer. Did not request additional therapy or intervention here at our facility. I then spoke with ER attending, Dr. Whitt who happily accepted transfer of the patient. Medical Records Medical records reviewed: Yes I reviewed the patient's medical records. Lab Data Lab results reviewed: Yes I reviewed the patient's lab results. Lab results narrative: 03/20/20 11:25 Blood Blood Culture - Pending 03/20/20 11:10 Blood Blood Culture - Pending Laboratory Tests Range/Units 03/20/20 03/20/20 03/20/20 08:50 08:50 08:50 WBC (4.4-10.8) 10^3/uL RBC (4.36-5.78) 10^6/uL Hgb (13.5-17.5) g/dL Hct (40.0-50.0) % MCV (80-95) fL MCH (27.0-33.0) pg MCHC (32.0-36.0) % RDW (11.8-14.1) % Plt Count (130-400) 10^3/uL MPV (8.0-11.0) fL Immature Gran % Neutrophils % Lymphocytes % Monocytes % Eosinophils % Basophils % Absolute Neutrophils (1.2-6.7) 10^3/uL Absolute Lymphocytes (1.2-3.4) 10^3/uL Absolute Monocytes (0.1-0.8) 10^3/uL Absolute Eosinophils (0.0-0.7) 10^3/uL Absolute Basophils (0.0-0.2) 10^3/uL PT (9.3-11.0) sec 10.8 INR (0.9-1.1) 1.1 Sodium (136-145) mmol/L Potassium (3.5-5.1) mmol/L Chloride (98-107) mmol/L Carbon Dioxide (21.0-32.0) mmol/L Anion Gap (3-11) mmol/L BUN (7-18) mg/dL Creatinine (0.70-1.30) mg/dL Estimated GFR/1.73 m2 (mL/min/1.73m2) Glucose (74-106) mg/dL Lactate (0.6-1.4) mmol/L 0.8 Calcium (8.5-10.1) mg/dL Total Bilirubin (0.2-1.0) mg/dL AST (15-37) U/L ALT (16-63) U/L Alkaline Phosphatase (46-116) U/L Total Protein (6.4-8.2) g/dL Albumin (3.4-5.0) g/dL Lipase (73-393) U/L 288 Urine Color (Yellow) Urine Clarity (Clear) Urine pH (5-8) Ur Specific [place] (1.005-1.025) Urine Protein (Negative) mg/dL Urine Ketones (Negative) mg/dL Urine Blood (Negative) Urine Nitrite (Negative) Urine Bilirubin (Negative) Urine Urobilinogen (Up TO 0.2) EU/dL Ur Leukocyte Esterase (Negative) Urine RBC (0-2) HPF Urine WBC (0-5) HPF Ur Epithelial Cells (Negative) HPF Urine Crystals (Negative) HPF Urine Bacteria (Negative) HPF Urine Casts (Negative) LPF Urine Mucus (Negative) Urine Other (Negative) Ur Culture Indicated? Urine Glucose (Negative) mg/dL Range/Units 03/20/20 03/20/20 03/20/20 08:50 08:50 11:30 WBC (4.4-10.8) 10^3/uL 15.11 H RBC (4.36-5.78) 10^6/uL 4.54 Hgb (13.5-17.5) g/dL 14.4 Hct (40.0-50.0) % 44.3 MCV (80-95) fL 97.6 H MCH (27.0-33.0) pg 31.7 MCHC (32.0-36.0) % 32.5 RDW (11.8-14.1) % 14.0 Plt Count (130-400) 10^3/uL 306 D MPV (8.0-11.0) fL 9.5 Immature Gran % 1.1 Neutrophils % 82.4 Lymphocytes % 6.5 Monocytes % 7.9 Eosinophils % 1.8 Basophils % 0.3 Absolute Neutrophils (1.2-6.7) 10^3/uL 12.45 H Absolute Lymphocytes (1.2-3.4) 10^3/uL 0.98 L Absolute Monocytes (0.1-0.8) 10^3/uL 1.19 H Absolute Eosinophils (0.0-0.7) 10^3/uL 0.27 Absolute Basophils (0.0-0.2) 10^3/uL 0.05 PT (9.3-11.0) sec INR (0.9-1.1) Sodium (136-145) mmol/L 140 Potassium (3.5-5.1) mmol/L 4.5 Chloride (98-107) mmol/L 105 Carbon Dioxide (21.0-32.0) mmol/L 31.9 Anion Gap (3-11) mmol/L 3.1 BUN (7-18) mg/dL 13 Creatinine (0.70-1.30) mg/dL 0.73 Estimated GFR/1.73 m2 (mL/min/1.73m2) >= 60.00 Glucose (74-106) mg/dL 118 H Lactate (0.6-1.4) mmol/L Calcium (8.5-10.1) mg/dL 9.0 Total Bilirubin (0.2-1.0) mg/dL 0.6 AST (15-37) U/L 29 ALT (16-63) U/L 49 Alkaline Phosphatase (46-116) U/L 64 Total Protein (6.4-8.2) g/dL 6.0 L Albumin (3.4-5.0) g/dL 2.7 L Lipase (73-393) U/L Urine Color (Yellow) Yellow Urine Clarity (Clear) Clear Urine pH (5-8) 7.5 Ur Specific [place] (1.005-1.025) 1.015 Urine Protein (Negative) mg/dL Trace H Urine Ketones (Negative) mg/dL Negative Urine Blood (Negative) Negative Urine Nitrite (Negative) Negative Urine Bilirubin (Negative) Negative Urine Urobilinogen (Up TO 0.2) EU/dL 0.2 Ur Leukocyte Esterase (Negative) Negative Urine RBC (0-2) HPF 3-5 H Urine WBC (0-5) HPF 0-2 Ur Epithelial Cells (Negative) HPF Rare Urine Crystals (Negative) HPF Negative Urine Bacteria (Negative) HPF Rare Urine Casts (Negative) LPF Negative Urine Mucus (Negative) Negative Urine Other (Negative) Negative Ur Culture Indicated? No Urine Glucose (Negative) mg/dL Negative ECG Data Attestation: I personally reviewed and interpreted this ECG (s) as follows: Interpretation: EKG performed at [facility], reviewed and interpreted with Dr. Torres. Please see his official report. Sinus rhythm, ventricular rate of 80. Left bundle branch block. No STEMI. <Butch Torres MD - Last Filed: 03/20/20 08:55> I had a [id number] encounter with the patient. I evaluated the patient. I discussed case with DIRECTOR OF CONVENTION SERVICES/PA and I reviewed DIRECTOR OF CONVENTION SERVICES/PA note and agree with note as documented HPI <AAYUSH Hansen - Last Filed: 03/20/20 12:23> General Mode of arrival: ambulatory . Date/Time Provider Initiated Documentation: 03/20/20 08:26 . Limitations to Documentation: no limitations . Information obtained by: patient . HPI Narrative: This is a 69-year-old gentleman with history of anxiety, depression, COPD, muscular dystrophy, left heart failure with an EF between 30 and 40, seen in our ER on 03-10-20, subsequently transferred to [facility] for SBO and incarcerated hernia. Patient reports that he was admitted to [facility], subsequently had 2 surgeries because the first surgery failed. He was discharged later that week but does not recall the exact date. He is scheduled to be seen by surgery at [facility] sometime in the second week of April. He denies fever, chest pain, worsening of his baseline shortness of breath, change of appetite, black tarry stools, bright red blood in his stools, dysuria, constipation. He was visited by his home health team today, blood pressure was noted to be low 90s over 60s, and because he was complaining of abdominal pain they sent to the ER for further evaluation. He re ports that he has had pain in his abdomen ever since the surgery, does not report any new or changing pain today. He does have a drain, reports it has been draining around 15 cc daily. He reports that the pain in his abdomen is diffuse but worse along the superior aspect of the incision site, is constant, mild now, worse with movement. Related Data Home Medications Medication Instructions Recorded Confirmed albuterol sulfate 90 mcg/actuation 1 puff IH QID 04/30/18 03/20/20 aerosol inhaler aspirin 81 mg PO DAILY 05/04/18 03/20/20 alfuzosin 10 mg PO DAILY 03/10/20 03/20/20 budesonide-formoterol 2 puff INHALATION BID 03/10/20 03/20/20 furosemide 20 mg PO DAILY 03/10/20 03/20/20 ipratropium-albuterol 3 ml INHALATION TID PRN 03/10/20 03/20/20 lanolin [id number] 1 applic TOPICAL BID PRN 03/10/20 03/20/20 [Eucerin] lisinopril 5 mg PO DAILY 03/10/20 03/20/20 metoprolol succinate 25 mg PO DAILY 03/10/20 03/20/20 sertraline 75 mg PO DAILY 03/10/20 03/20/20 tiotropium bromide 2 puff INHALATION DAILY 03/10/20 03/20/20 acetaminophen 500 mg PO PRN PRN 03/20/20 03/20/20 hydromorphone [Dilaudid] 2 mg PO PRN PRN 03/20/20 03/20/20 Allergies Allergy/AdvReac Type Severity Reaction Status Date / Time No Known Allergies Allergy Verified 03/20/20 08:35 General Stated Complaint: Abd Prob PANCHO: 3 Review of Systems <AAYUSH Hansen - Last Filed: 03/20/20 12:23> Constitutional Constitutional: Denies fatigue, Denies fever(s) and Denies headache(s) ENT Ears, Nose, Mouth, and Throat: Denies headache(s) and Denies neck pain Cardiovascular Cardiovascular: Denies chest pain and Reports dyspnea (Chronic) Respiratory Respiratory: Reports cough (Chronic) and Reports dyspnea (Chronic) Gastrointestinal Gastrointestinal: Reports abdominal pain, Denies melena, Denies hematochezia, Denies constipation, Denies diarrhea, Reports loose stools, Denies nausea and Denies vomiting Genitourinary Genitourinary: Denies dysuria Musculoskeletal Musculoskeletal: Denies neck pain and Denies tingling Integumentary/Breasts Skin/Breast: Denies rash Neurologic Neurologic: Denies headache(s) and Denies tingling Endocrine Endocrine: Denies fatigue Hematologic/Lymphatic Hematologic/Lymphatic: Denies easy bleeding and Denies easy bruising PFSH <AAYUSH Hansen - Last Filed: 03/20/20 12:23> Medical History Acquired talipes planus (Acute) Anxiety and depression (Acute) BPH without urinary obstruction (Acute) COPD (chronic obstructive pulmonary disease) (Chronic) Dystrophia unguium (Acute) Eye trauma (Acute) 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) Left heart failure with left ejection fraction 30-40 percent (Acute) Left rotator cuff tear (Inactive) DOI: 01/31/18 Left rotator cuff tear arthropathy (Inactive) Mitral regurgitation (Chronic) Muscular dystrophy (Acute) Neuropathy (Acute) Other intervertebral disc degeneration, lumbosacral region (Acute) Overweight (Acute) Umbilical hernia (Acute) Surgical History History of appendectomy (Chronic) History of incisional hernia repair (Acute) S/P bilateral inguinal hernia repair (Inactive) Social History Smoking/Tobacco Use Status: Former Tobacco Use Alcohol Intake: former Details: quit 1987 Drug use: Never Substance use type: does not use 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 Do you feel safe at home: Yes Do you feel safe in your relationship?: Yes Exam <AAYUSH Hansen - Last Filed: 03/20/20 12:23> Const General: cooperative, healthy appearing, comfortable and no acute distress Orientation: alert, awake and oriented x3 HENMT Head: normal to inspection, normocephalic and atraumatic Mouth: moist mucous membranes Eyes Conjunctivae: conjunctivae normal Sclera: sclerae normal Neck Neck: normal visual inspection, full ROM, trachea midline, supple and nontender Resp Effort & Inspection: normal respiratory effort and able to speak in complete sentences Auscultation: diminished lung sounds bilaterally in the lower lung lester Cardio Rate: regular rate Rhythm: regular rhythm GI Inspection: distended (Slightly), incision (Surgical, vertical, well approximated with jose), obesity and other (Drain present. Small amount of bloody-serous drainage. Appears normal ) Palpation: soft, not firm, no guarding, not rigid and tender (Diffuse, worse along superior aspect of incision) with no rebound tenderness and Rovsing's sign negative Auscultation: hypoactive bowel sounds Back/Spine/Pelvis Back: No back tenderness Skin General skin exam: no rashes or lesions noted Neuro General: patient alert, patient awake, patient oriented x3, moves all extremities and no focal motor deficits Sensory Exam: no sensory deficits noted Extrem General: normal to inspection, full ROM, capillary refill normal, no pedal edema and no calf tenderness Psych Appearance: grossly normal Mental Status: mental status grossly normal Course <AAYUSH Hansen - Last Filed: 03/20/20 12:23> Vital Signs Vital signs: Vital Signs Temperature 36.6 C 03/20/20 08:32 Pulse 89 03/20/20 08:32 Respiratory Rate 16 03/20/20 08:32 Blood Pressure 95/59 L 03/20/20 08:32 Pulse Oximetry 96 03/20/20 08:32 Temperature 36.6 C 03/20/20 08:32 Temperature Source Tympanic 03/20/20 08:32 Pulse 89 03/20/20 08:32 Respiratory Rate 16 03/20/20 08:32 Respiratory Effort Non-Labored 03/20/20 08:34 Blood Pressure 95/59 L 03/20/20 08:32 Blood Pressure Position Sitting 03/20/20 08:32 Pulse Oximetry 96 03/20/20 08:32 Oxygen Delivery Method Room Air 03/20/20 08:32 Oxygen Flow Rate 0 03/20/20 08:32 Pain Level 4 03/20/20 08:32 Critical Care Time <AAYUSH Hansen - Last Filed: 03/20/20 12:23> Critical Care Time Critical Care Time: Yes Total Critical Care Time: 35 Attestation: Upon my evaluation, this patient had a high probability of clinically significant, life-threatening deterioration due to their current medical conditions, which required my direct attention, intervention, and personal management. I have personally provided greater than 30 minutes of critical care time exclusive of the time spend on separately billable procedures. Time includes obtaining a history, examining the patient, pulse oximetry, review of laboratory data, radiology results, discussion with consultants, arranging urgent treatment with development of a management plan, evaluation of patient's response to treatment, and monitoring for potential decompensation. Interventions were performed as documented above.
[2020-03-20 08:57] LABS: Abs Immature Grans 0.17 10^3/uL (0.0-0.06); Absolute Eosinophil Count 0.27 10^3/uL (0.0-0.7); Absolute Lymphocyte Count 0.98 10^3/uL (1.2-3.4); Absolute Monocyte Count 1.19 10^3/uL (0.1-0.8); Basophils % 0.3; Eosinophils % 1.8; HCT 44.3 % (40.0-50.0); HGB 14.4 g/dL (13.5-17.5); Immature Grans % 1.1; Lactate 0.8 mmol/L (0.6-1.4); Lymphocytes % 6.5; MCH 31.7 pg (27.0-33.0); MCHC 32.5 % (32.0-36.0); MCV 97.6 fL (80-95); MPV 9.5 fL (8.0-11.0); Monocytes % 7.9; Neutrophils % 82.4; Nucleated RBC 0 %; Platelet Count 306 10^3/uL (130-400); RBC 4.54 10^6/uL (4.36-5.78); RDW-SD 50.2 fL; WBC 15.11 10^3/uL (4.4-10.8)
[2020-03-20 09:00] LABS: Absolute Basophil Count 0.05 10^3/uL (0.0-0.2); Absolute Neutrophil Count 12.45 10^3/uL (1.2-6.7)
[2020-03-20 09:13] LABS: INR 1.1 (0.9-1.1); Prothrombin Time 10.8 sec (9.3-11.0)
[2020-03-20] MEDS: Normal Saline 1,000 ML 125 ML IV (09:15)
[2020-03-20 09:16] LABS: Lipase 288 U/L (73-393)
[2020-03-20 09:19] LABS: ALT 49 U/L (16-63); AST 29 U/L (15-37); Albumin 2.7 g/dL (3.4-5.0); Alkaline Phosphatase 64 U/L (46-116); Anion Gap 3.1 mmol/L (3-11); BUN 13 mg/dL (7-18); Bilirubin, Total 0.6 mg/dL (0.2-1.0); CO2 31.9 mmol/L (21.0-32.0); CREATININE 0.73 mg/dL (0.70-1.30); Chloride 105 mmol/L (98-107); Glucose 118 mg/dL (74-106); Potassium 4.5 mmol/L (3.5-5.1); Sodium 140 mmol/L (136-145)
--- NOTE | 2020-03-20 09:45 | RT.EKG_ITS ---
APPROVED REPORT Exam: Resting ECG Patient Location: E HR:80 bpm ECG Measurements Heart Rate 80 AXIS AZ 149 P -4 QRSd 122 QRS -42 QT 371 T 58 QTc 428 Conclusion Sinus rhythm...normal P axis, V-rate 60- 99 Left bundle branch block...QRSd>120, broad/notched R
[2020-03-20] MEDS: Normal Saline - Diluent 50 ML VIAL IV (10:05)
--- NOTE | 2020-03-20 10:10 | DI.CT_ITS ---
EXAM: CT ABDOMEN PELVIS W CLINICAL HISTORY: Recent SBO and incarcerated hernia, surgery TECHNIQUE: Imaging Protocol: Axial computed tomography images with coronal and sagittal reformatted images were created and reviewed CONTRAST MATERIAL: Intravenous: Omnipaque 350 Contrast volume:100 mL Oral: No COMPARISON: CT CT ABDOMEN PELVIS W from 03/10/2020 FINDINGS: ABDOMEN: Lung Bases: Small left pleural effusion. Bilateral basilar infiltrates left greater than right. Mod erate emphysematous changes in the lung bases. Cardiomegaly. Liver: Normal density. No measurable mass. Portal, Superior Mesenteric, and Splenic Veins: Unremarkable. Gallbladder and Biliary Tract: No radiodense calculus or dilation. Pancreas: Normal density, no abnormal calcifications or inflammatory process. Spleen: Normal. Adrenals: No masses seen. Kidneys: Normal size, contour and axis. Bilateral nephrolithiasis. No hydronephrosis. Bilateral savage al cysts. Abdominal Aorta: Abdominal portion non-dilated. Atherosclerosis. Bowel: Since the prior examination the patient has at anterior abdominal wall surgery. There is a sm all bowel anastomosis now present. There is dilatation of the bowel proximal to the anastomosis sugg esting a small bowel obstruction. There is an anterior abdominal wall hernia containing a loop of sm all bowel. There is a percutaneous drain seen within the hernia sac. No evidence of acute appendici tis. Colonic diverticulosis but no evidence of acute diverticulitis. Peritoneal Cavity: Small amount of abdominal pelvic ascites. No pneumoperitoneum. Lymph Nodes: Within normal limits. Bones: No acute abnormality. Soft Tissues: Anasarca. PELVIS: Bladder: Symmetric distention, no gross wall thickening. Reproductive Organs: Unremarkable as visualized. Lymph Nodes: Within normal limits. Bones: No acute abnormality. IMPRESSION: 1. Small left pleural effusion and bilateral basilar infiltrate suspicious for pneumonia. 2. Interval postsurgical changes a small bowel resection. Small bowel dilatation proximal to the conrado stomosis suggesting a small bowel obstruction. 3. Anterior abdominal wall hernia containing small bowel. There is a question of mild wall thickenin g of the involved small bowel. 4. Small amount of abdominal pelvic ascites. 5. Anasarca. 6. Findings were discussed with the emergency department on the date of the examination. RADIATION DOSE DELIVERED: 1,294.71mGy.cm Total DLP DATA REPOSITORY: All CT scans at this facility are submitted to the National Radiology Data Registry (NRDR) Dose Index Registry (DIR) with the [employer] (A[employer]). RADIATION OPTIMIZATION: All CT scans at this facility use at least one of these dose optimization te chniques: automated exposure control; mA and/or kV adjustment per patient size (includes targeted exa ms where dose is matched to clinical indication); or iterative reconstruction.
[2020-03-20] MEDS: Omnipaque 350 MG/ML 100 ML BTL IJ (10:15)
[2020-03-20] MEDS: cefTRIAXone 1 GM/50 ML BAG IVPB (11:37)
[2020-03-20 11:41] LABS: Bilirubin Negative (Negative); Blood Negative (Negative); Clarity Clear (Clear); Glucose Negative (Negative); Ketones Negative (Negative); Leukocyte Esterase Negative (Negative); Nitrite Negative (Negative); Specific Gravity 1.015 (1.005-1.025); Urobilinogen 0.2 EU/dL (Up TO 0.2); pH 7.5 (5-8)
[2020-03-20 11:49] LABS: Bacteria Rare HPF (Negative); C & S Indicated? No; Casts Negative LPF (Negative); Crystals Negative HPF (Negative); Epithelial Cells Rare HPF (Negative); Mucus Negative (Negative); Other Cells Negative (Negative); WBC 0-2 HPF (0-5)
[2020-03-20] MEDS: LORazepam 2 MG/ML VIAL 1 MG IVP (12:27)
== END 2020-03-20 13:29 ==
PROVIDERS: Emergency Provider Physician Assistant; PCP Nurse Practitioner Adult Health
DX: K91.30 Postprocedural intestinal obstruction, unspecified as to partial versus complete (principal); Y83.2 Surgical operation with anastomosis, bypass or graft as the cause of abnormal reaction of the patient, or of later complication, without mention of misadventure at the time of the procedure; K43.9 Ventral hernia without obstruction or gangrene; I95.9 Hypotension, unspecified; J18.9 Pneumonia, unspecified organism; R60.1 Generalized edema; J44.9 Chronic obstructive pulmonary disease, unspecified; Z87.891 Personal history of nicotine dependence; G71.00 Muscular dystrophy, unspecified
CPT/HCPCS: 36415; 80053; 83690; 87040; 93005; 96361; 96365; 96366; 96375; 99291; 74177; 81003; 81015; 83605; 85025; 85610; 93010; J0696; J2060; J3490

== ENCOUNTER 2020-04-14 09:37 | Outpatient (CLI) | payer OTHER, SELFPAY ==
--- NOTE | 2020-04-14 09:30 | DI.RAD_ITS ---
EXAM: XR HIP RT COMPLETE AP PELVIS INDICATION: RT HIP PAIN X 6 MOS WITH CHANGE IN GAIT, REF#[id number]. COMPARISON: No exams were available for comparison TECHNIQUE: 2D digital imaging was performed. FINDINGS: There is bilateral acetabular spurring and mild bilateral hip joint space narrowing. There are enth esophytes at the iliac wings and greater trochanters. There are mild degenerative changes of the SI joints, left greater than right. IMPRESSION: [id number] degenerative changes of both hips. DATA REPOSITORY: RADIATION DOSE DELIVERED:
== END 2020-04-14 09:57 ==
PROVIDERS: PCP Nurse Practitioner Adult Health; Visit Provider Nurse Practitioner Adult Health
DX: M16.0 Bilateral primary osteoarthritis of hip (principal)
CPT/HCPCS: 73502

== ENCOUNTER 2023-07-03 12:52 | Emergency (ER) | payer OTHER, SELFPAY ==
[2023-07-03 12:58] VITALS: BP 142/82; PULSE 70; RESP 16; TEMP 36.6; O2SAT 94
--- NOTE | 2023-07-03 13:09 | ED.GENADUL_ITS ---
Discharge Plan Disposition Patient Disposition: Home Condition: Stable Discharge Details Clinical Impression: Head injury, Laceration of scalp Primary Care Provider: Jackeline Ramesh ED Provider: Mary Ann York Home Meds and New Rx's Prescriptions: Continued albuterol sulfate [ProAir HFA] 90 mcg/actuation HFA aerosol inhaler 1 puff IH QID aspirin 81 mg Tablet,Chewable 81 mg PO DAILY acetaminophen 500 mg Tablet 500 mg PO PRN PRN Rx Instructions: every 6 hours as needed. sertraline 25 mg Tablet 75 mg PO DAILY ipratropium-albuterol 0.5 mg-3 mg(2.5 mg base)/3 mL Solution For Nebulization 3 ml INHALATION TID PRN furosemide 20 mg Tablet 20 mg PO DAILY metoprolol succinate 25 mg Tablet Extended Release 24 Hr 25 mg PO DAILY alfuzosin 10 mg Tablet Extended Release 24 Hr 10 mg PO DAILY budesonide-formoterol 160-4.5 mcg/actuation Hfa Aerosol Inhaler 2 puff INHALATION BID Eucerin Cream 1 applic TOPICAL BID PRN tiotropium bromide 2.5 mcg/actuation Mist 2 puff INHALATION DAILY Discharge Instructions Instructions: Head Injury (ED), Head Laceration (ED) Additional Instructions: Have sutures removed in 5 to 7 days. Return sooner if any signs of infection, red streaks drainage or concerns. Return sooner for any confusion weakness double vision blurry vision or any concerns. Leave alone for the first 12 to 24 hours. After 24 hours you may wash under running soap and water and is in the shower. No swimming or soaking. Follow up with primary care provider in 3-5 days. Return to ED sooner if any worsening or concerns. Increase oral fluids. Please take Tylenol or Ibuprofen with food every 4-6 hours as needed for pain and swelling. Referrals: Jackeline Ramesh [Primary Care Provider] - 3 days Medical Decision Making 72 year old male presents to the ED with chief complaint of mechanical fall [employer] and forehead laceration. Patient states he was bringing some wood in stores tripped fell on a tile floor. He denies any loss of consciousness no neck pain. He does have approximately 2 cm laceration noted to the his left frontal scalp bleeding is controlled upon arrival. He does take aspirin daily. Does have a history of neuropathy, muscular dystrophy, anxiety depression, mitral regurgitation. Due to age and mechanism will order head CT to rule out CVA. Patient states that he fell and he is not sure how or what happened. He denies any loss of consciousness however. Neuroexam is within normal limits no gross motor neurodeficits noted. 1436: laceration anesthetized with 1 % lidocaine with epinephrine, patient tolerated well. CT WNL. Laceration repaired with 3 interrupted sutures, well approximated. Discussed home care and return instructions, instructed to return in 5-7 days for suture removal. This text was generated using [employer] system, please disregard any oddities of phrase or misspellings. Imaging Data Radiologic Study: Imaging: CT Scan Radiologist's impression: EXAM: CT HEAD WO CLINICAL HISTORY: Fall, head injury. TECHNIQUE: Imaging Protocol: Axial computed tomography images with coronal and sagittal reformatted images were created and reviewed COMPARISON: No exams were available for comparison FINDINGS: Ventricles and Extra axial spaces: Normal in size and morphology for the patient's age. Hemorrhage: None. Cerebral parenchyma: No acute territorial infarct. Midline shift: None. Brainstem/Cerebellum: Normal. Calvarium: Normal. Visualized Paranasal sinuses/Mastoids: Clear. Soft Tissues: There is a laceration with subcutaneous air and soft tissue swelling over the left forehead. IMPRESSION: 1. No acute intracranial process or skull fracture. 2. Soft tissue swelling and laceration over the left forehead. 3. Findings were discussed with the emergency department at 2:15 p.m. on 07/03/2023. HPI General Mode of arrival: ambulatory . Date/Time Provider Initiated Documentation: 07/03/23 13:02 . Limitations to Documentation: no limitations . Information obtained by: patient, RN notes reviewed and old records reviewed . HPI Narrative: 72 year old male presents to the ED with chief complaint of mechanical fall [employer] and forehead laceration. Patient states he was bringing some wood in stores tripped fell on a tile floor. He denies any loss of consciousness no neck pain. He does have approximately 2 cm laceration noted to the his left frontal scalp bleeding is controlled upon arrival. He does take aspirin daily. Does have a history of neuropathy, muscular dystrophy, anxiety depression, mitral regurgitation. Related Data Home Medications Medication Instructions Recorded Confirmed albuterol sulfate 90 mcg/actuation 1 puff inhalation QID 04/30/18 07/03/23 aerosol inhaler (ProAir HFA) aspirin 81 mg chewable tablet 81 mg PO DAILY 05/04/18 07/03/23 alfuzosin 10 mg tablet,extended 10 mg PO DAILY 03/10/20 07/03/23 release 24 hr budesonide-formoterol HFA 160 2 puff inhalation BID 03/10/20 07/03/23 mcg-4.5 mcg/actuation aerosol inhaler furosemide 20 mg tablet 20 mg PO DAILY 03/10/20 07/03/23 ipratropium 0.5 mg-albuterol 3 mg 3 ml inhalation TID PRN 03/10/20 07/03/23 (2.5 mg base)/3 mL nebulization soln lanolin alcohols-mineral 1 applic topical BID PRN 03/10/20 03/20/20 oil-w.petrolatum-ceresin topical cream (Eucerin topical cream) metoprolol succinate 25 mg 25 mg PO DAILY 03/10/20 07/03/23 tablet,extended release 24 hr sertraline 25 mg tablet 75 mg PO DAILY 03/10/20 07/03/23 tiotropium bromide 2.5 2 puff inhalation DAILY 03/10/20 07/03/23 mcg/actuation mist for inhalation acetaminophen 500 mg tablet 500 mg PO PRN PRN 03/20/20 07/03/23 Allergies Allergy/AdvReac Type Severity Reaction Status Date / Time No Known Allergies Allergy Verified 07/03/23 13:02 General Stated Complaint: Laceration PANCHO: 3 Review of Systems All systems reviewed & are unremarkable except as noted in HPI and below ENT Ears, Nose, Mouth, and Throat: Reports as per HPI and Reports facial pain PFSH All Active Problems (Updated 07/03/23 @ 14:57 by Mary Ann York NP) Laceration of scalp (Acute) Head injury (Acute) Left heart failure with left ejection fraction 30-40 percent (Acute) COPD (chronic obstructive pulmonary disease) (Chronic) Medical History (Updated 07/03/23 @ 14:57 by Mary Ann York NP) 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, lumbosacral region Mitral regurgitation BPH without urinary obstruction Dystrophia unguium Acquired talipes planus Neuropathy Left rotator cuff tear DOI: 01/31/18 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 Laceration, partial-thickness, linear with surrounding swelling Neuro General: patient alert, patient awake and patient oriented x3 Cranial Nerves: CN's II-XI intact bilaterally Cognition: normal cognition Speech: speech normal Course Vital Signs Vital signs: Vital Signs Temperature 36.6 C 07/03/23 12:58 Pulse 70 07/03/23 12:58 Respiratory Rate 16 07/03/23 12:58 Blood Pressure 142/82 H 07/03/23 12:58 Pulse Oximetry 94 07/03/23 12:58 Temperature 36.6 C 07/03/23 12:58 Temperature Source Oral 07/03/23 12:58 Pulse 70 07/03/23 12:58 Respiratory Rate 16 07/03/23 12:58 Respiratory Effort Normal, Non-Labored 07/03/23 13:05 Blood Pressure 142/82 H 07/03/23 12:58 Blood Pressure Position Sitting 07/03/23 12:58 Pulse Oximetry 94 07/03/23 12:58 Oxygen Delivery Method Room Air 07/03/23 12:58 Oxygen Flow Rate 0 07/03/23 12:58 Pain Level 1 07/03/23 13:05 Procedures Laceration Laceration 1: Site: scalp Side (If applicable): left Size (cm): 2 Description: linear Depth: simple, single layer Local Anesthetic: Lidocaine 1% and with Epi Amount of anesthesia used (mL): 2 Pre-repair: wound explored and irrigated extensively Skin layer closed with: nylon Size (cm): 4-0 Number of sutures: 3 Technique: simple, interrupted
[2023-07-03] MEDS: Lidocaine/Epinephri/Tetracaine Topical Gel 3 ML TP (13:23)
--- NOTE | 2023-07-03 13:55 | DI.CT_ITS ---
Exam(s) CT HEAD WO EXAM: CT HEAD WO CLINICAL HISTORY: Fall, head injury. TECHNIQUE: Imaging Protocol: Axial computed tomography images with coronal and sagittal reformatted images were created and reviewed COMPARISON: No exams were available for comparison FINDINGS: Ventricles and Extra axial spaces: Normal in size and morphology for the patient's age. Hemorrhage: None. Cerebral parenchyma: No acute territorial infarct. Midline shift: None. Brainstem/Cerebellum: Normal. Calvarium: Normal. Visualized Paranasal sinuses/Mastoids: Clear. Soft Tissues: There is a laceration with subcutaneous air and soft tissue swelling over the left fore head. IMPRESSION: 1. No acute intracranial process or skull fracture. 2. Soft tissue swelling and laceration over the left forehead. 3. Findings were discussed with the emergency department at 2:15 p.m. on 07/03/2023. RADIATION DOSE DELIVERED: Total DLP DATA REPOSITORY: All CT scans at this facility are submitted to the National Radiology Data Registry (NRDR) Dose Index Registry (DIR) with the [employer] (ACR). RADIATION OPTIMIZATION: All CT scans at this facility use at least one of these dose optimization te chniques: automated exposure control; mA and/or kV adjustment per patient size (includes targeted exa ms where dose is matched to clinical indication); or iterative reconstruction.
[2023-07-03 15:10] VITALS: BP 142/82; PULSE 70; RESP 16; TEMP 36.6; O2SAT 94
== END 2023-07-03 15:11 | disposition home or self-care (01) ==
PROVIDERS: Emergency Provider Registered Nurse Emergency; PCP Nurse Practitioner Adult Health
DX: R51.9 Headache, unspecified (principal); S01.01XA Laceration without foreign body of scalp, initial encounter; S09.90XA Unspecified injury of head, initial encounter; W01.198A Fall on same level from slipping, tripping and stumbling with subsequent striking against other object, initial encounter
CPT/HCPCS: 12001; 99284; 70450; 99283

== ENCOUNTER 2024-10-02 09:07 | Outpatient (CLI) | payer OTHER, SELFPAY ==
--- NOTE | 2024-10-02 09:50 | DI.RAD_ITS ---
Exam(s) XR CHEST 2V PA LATERAL EXAM: XR CHEST 2V PA LATERAL CLINICAL HISTORY: [place] AUTH# [id number] COUGH R05.9 TECHNIQUE: 2D digital imaging was performed. Two views. COMPARISON: CT CT ABDOMEN PELVIS W from 03/20/2020 FINDINGS: HEART: Normal size. Aorta: Mildly tortuous. PULMONARY VASCULATURE: Normal. MEDIASTINUM: Unremarkable. LUNGS: Linear scarring at the right lung base. Asymmetric patchy densities are noted in the right lo wer lung field which could represent scarring versus infiltrate. Mild left basilar atelectasis. PLEURAL SPACE: No pleural effusion or pneumothorax. BONE:Unremarkable for age. SOFT TISSUES: Mild elevation of the left diaphragm. IMPRESSION: Question of right lower lobe infiltrate. DATA REPOSITORY: RADIATION DOSE DELIVERED:
== END 2024-10-02 09:27 ==
PROVIDERS: PCP Nurse Practitioner Adult Health; Visit Provider Internal Medicine
DX: R05.9 Cough, unspecified (principal)
CPT/HCPCS: 71046

== ENCOUNTER 2025-02-07 16:31 | Emergency (ER) | payer OTHER, SELFPAY ==
[2025-02-07] VITALS (32 sets, daily range): BP systolic 78–118; BP diastolic 50–83; PULSE 62–127; RESP 15–43; TEMP 36.7; O2SAT 91–98
--- NOTE | 2025-02-07 16:30 | RT.EKG_ITS ---
APPROVED REPORT Exam: Resting ECG Reason for Exam: dizziness Patient Location: E HR:131 bpm ECG Measurements Heart Rate 131 AXIS TX [id number] P [id number] QRSd 119 QRS -62 QT 326 T 101 QTc 482 Conclusion Atrial fibrillation...? atrial activity Ventricular premature complex...V complex w/ short R-R interval RBBB and LAFB...QRSd >120mS, axis(-40,240) Nonspecific T abnormalities, lateral leads...T <-0.10mV, I aVL V5 V6 I have reviewed and interpreted ECG and agree with software generated interpretation.
--- NOTE | 2025-02-07 16:58 | W.ED.GENAD ---
Discharge Plan Disposition Patient Disposition: Transfer-Acute Inpatient Care Specific Acute Inpt Facility: Other Condition: Serious Discharge Details Clinical Impression: Acute hypotension, Fluid volume depletion, CHF (congestive heart failure) Primary Care Provider: Jackeline Ramesh ED Provider: Mary Ann York Home Meds and New Rx's Prescriptions: No Action aspirin 81 mg Tablet,Chewable 81 mg PO DAILY sertraline 25 mg Tablet 75 mg PO DAILY ipratropium-albuterol 0.5 mg-3 mg(2.5 mg base)/3 mL Solution For Nebulization 3 ml INHALATION TID PRN furosemide 20 mg Tablet 20 mg PO DAILY metoprolol succinate 25 mg Tablet Extended Release 24 Hr 25 mg PO DAILY alfuzosin 10 mg Tablet Extended Release 24 Hr 10 mg PO DAILY budesonide-formoterol 160-4.5 mcg/actuation Hfa Aerosol Inhaler 2 puff INHALATION BID Eucerin Cream 1 applic TOPICAL BID PRN tiotropium bromide 2.5 mcg/actuation Mist 2 puff INHALATION DAILY HPI General Mode of arrival: wheelchair. Date/Time Provider Initiated Documentation: 02/07/25 16:44. Limitations to Documentation: no limitations. Information obtained by: patient, RN notes reviewed and old records reviewed. HPI Narrative: 74-year-old male presents to the ER with a chief complaint of very dizzy for the last 4 hours today. Patient had multiple near syncopal episodes, reports that he fell and does not remember falling, a superficial skin tear to his right arm is noted bleeding controlled upon arrival. Reportedly getting dizzy with any movement and standing endorses shortness of breath. Does have a history of COPD. Also has a history of a ruptured hernia. Upon initial presentation his blood pressure is 86/62 pulse is 127. Patient is in what appears to be A-fib with RVR with occasional PVCs upon arrival. Lungs are clear to auscultation bilaterally no wheezes no rhonchi. No lower extremity edema. Patient denies any chest pain. Related Data Home Medications ?Medication ?Instructions ?Recorded ?Confirmed aspirin 81 mg chewable tablet 81 mg PO DAILY 05/04/18 07/03/23 alfuzosin 10 mg tablet,extended 10 mg PO DAILY 03/10/20 07/03/23 release 24 hr budesonide-formoterol HFA 160 2 puff inhalation BID 03/10/20 07/03/23 mcg-4.5 mcg/actuation aerosol inhaler furosemide 20 mg tablet 20 mg PO DAILY 03/10/20 07/03/23 ipratropium 0.5 mg-albuterol 3 mg 3 ml inhalation TID PRN 03/10/20 07/03/23 (2.5 mg base)/3 mL nebulization soln lanolin alcohols-mineral 1 applic topical BID PRN 03/10/20 03/20/20 oil-w.petrolatum-ceresin topical cream (Eucerin topical cream) metoprolol succinate 25 mg 25 mg PO DAILY 03/10/20 07/03/23 tablet,extended release 24 hr sertraline 25 mg tablet 75 mg PO DAILY 03/10/20 07/03/23 tiotropium bromide 2.5 2 puff inhalation DAILY 03/10/20 07/03/23 mcg/actuation mist for inhalation Allergies Allergy/AdvReac Type Severity Reaction Status Date / Time No Known Allergies Allergy Verified 07/03/23 13:02 General Stated Complaint: Dizzy/Sync PANCHO: 3 Review of Systems All systems reviewed & are unremarkable except as noted in HPI and below Constitutional Constitutional: Reports as per HPI and Denies headache(s) ENT Ears, Nose, Mouth, and Throat: Denies vertigo, Reports dizziness and Denies headache(s) Cardiovascular Cardiovascular: Reports as per HPI, Denies chest pain, Reports syncope, Denies pedal edema, Denies edema, Reports irregular heart rhythm, Reports lightheadedness, Reports dyspnea on exertion and Reports orthopnea Respiratory Respiratory: Denies chest congestion, Denies cough, Denies hemoptysis, Reports dyspnea on exertion and Denies wheezing Gastrointestinal Gastrointestinal: Denies abdominal pain (Has a mass to abdomen from a burst hernia, multiple healed scars noted ), Denies diarrhea, Denies nausea and Denies vomiting Musculoskeletal Musculoskeletal: Denies numbness and Reports other (Hx of Muscular Dystrophy decreased tone LLE) Neurologic Neurologic: Reports as per HPI, Denies abnormal speech, Denies vertigo, Reports dizziness, Reports syncope, Denies headache(s), Denies localized weakness, Denies numbness and Denies convulsions Allergic/Immunologic Allergic/Immunologic: Denies wheezing Exam Narrative Exam Narrative: Constitutional: Alert and oriented x3. Appears stated age. Normal body habitus. Head: Normocephalic, no trauma. Eyes: Pupils PERRL, Red reflex noted, EOM's intact. Eyelids symmetrical without lesions, discharge, or swelling. ENT: Bilateral TM's WNL, External ear normal to inspection, no mastoid TTP, swelling, or erythema, Nasal turbinates WNL, no nasal discharge. Normal dentition, Posterior pharynx WNL, no exudate. Chest: Hypotension with a systolic blood pressure of 86/62 tachycardic upon initial presentation with a rate of 127, wide-complex tachycardia, frequent PVCs, EKG reads possible A-fib with RVR, distal pulses intact. Resp: Lungs diminished to auscultation bilaterally in the bases, no wheezes, rales, or rhonchi. Abdomen: Mass noted with multiple healed surgical scars, patient reports that he had a burst hernia. No erythema or abdominal tenderness with palpation. Musculoskeletal: Unable to assess gait, Moves all 4 extremities without difficulty. Skin: No suspicious rashes or lesions. Capillary refill less than 2 sec. Neurologic: Cranial nerves II-XII intact. Alert and oriented x 3. Motor: No deficits noted. Sensory: Intact bilaterally all 4 extremities. Hematologic/Lymphatic: No ecchymosis, no lymphadenopathy. Cardio Rate: tachycardic Rhythm: abnormal rhythm (Wide-complex tachycardia, occasional PVCs) with ectopic beats Heart Sounds: other (Muffled) Pulses: radial pulses present bilaterally Course Vital Signs Vital signs: Vital Signs Temperature 36.7 C 02/07/25 16:35 Pulse 127 H 02/07/25 16:35 Respiratory Rate 16 02/07/25 16:35 Blood Pressure 86/62 L 02/07/25 16:35 Pulse Oximetry 98 02/07/25 16:35 Temperature 36.7 C 02/07/25 16:35 Pulse 62 02/07/25 16:46 Respiratory Rate 16 02/07/25 16:46 Blood Pressure 105/71 02/07/25 16:46 Blood Pressure Mean 82 02/07/25 16:46 Pulse Oximetry 98 02/07/25 16:46 Oxygen Delivery Method Room Air 02/07/25 16:46 Oxygen Flow Rate 0 02/07/25 16:46 Pain Level 0 02/07/25 16:35 Medical Decision Making 74-year-old male presents to the ER with a chief complaint of very dizzy for the last 4 hours today. Patient had multiple near syncopal episodes, reports that he fell got a lack to his right arm. Reportedly getting dizzy with any movement shortness of breath. Does have a history of COPD. Also has a history of a ruptured hernia. Mitral valve regurgitation. Upon initial presentation his blood pressure is 86/62 pulse is 127. Patient is in A-fib with RVR with occasional PVCs upon arrival. Lungs are clear to auscultation bilaterally no wheezes no rhonchi. No lower extremity edema. Patient denies any chest pain. CHF with EF 30-40%. Workup ordered including CBC CMP serial troponins, proBNP, head CT, urinalysis 500 cc normal saline bolus. Differential diagnosis includes but not limited to dehydration, CVA, CAD, arrhythmia such as atrial fibrillation Patient does have a history of muscular dystrophy, mitral regurgitation, neuropathy, left rotator cuff, hypertension 1804: On patient reevaluation after the 500 cc bolus blood pressure is 88/68, 90/61, heart rate is 108, O2 sat 90 to 92% on room air. Lungs are diminished however no wheezes or crackles auscultated. BP intermittantly improves to 118/[address] head pending, chest x-ray pending. 1830: Noted on monitor that patient's rhythm is changed to a sinus rhythm blood pressure 84/60, O2 sat 93% on room air, patient denies any syncope or dizziness denies any chest pain at this time. Will call the [facility] for bed status, as patient normally gets his care there. Serial troponin is pending at this time. What is reassuring is patient has remained A&O x 4 throughout his stay here, denies any headache chest pain. Will perform bedside ultrasound to aid in diagnosis and eval EF patient is known low EF with of 30 to 40%. 1854: [place] made [place] [facility] [place] for consult. 1908: Spoke with Dr. Shaun Acosta @ [facility] discussed patient case in details, she recommends an additional 500 cc of normal saline which I did order, she accepts patient for transfer. Will arrange transportation. Discussed plan of care with patient who agrees and is in agreement [facility] 2043: Spoke with Cardiology at [facility], they recommends holdding all anti-hypertensives at this time and diuretics until further workup. At this time unsure if this is cardiogenic related versus volume depletion. Of note urinalysis has returned patient does appear to have a UTI 15 ketones 100 protein, small blood positive nitrites moderate leukocytes greater than [address] head and neck CT CTA results. No stenosis occlusion or acute abnormalities noted. Will give ceftriaxone 1 g IV piggyback at this time awaiting arrangement of transfer via sash maker level. 2109: EMS here, antibiotic was hung just prior to transportation. Patient remained alert and oriented throughout remainder of stay. Last documented blood pressure 88/61. This text was generated using [employer] system, please disregard any oddities of phrase or misspellings. Medical Records Medical records reviewed: Yes I reviewed the patient's medical records. Lab Data Lab results reviewed: Yes I reviewed the patient's lab results. Labs: Laboratory Tests Range/Units 02/07/25 02/07/25 17:05 18:18 WBC (4.4-10.8) 10^3/uL 6.98 RBC (4.36-5.78) 10^6/uL 4.89 Hgb (13.5-17.5) g/dL 15.4 Hct (40.0-50.0) % 46.3 MCV (80-95) fL 95 MCH (27.0-33.0) pg 31.5 MCHC (32.0-36.0) % 33.3 RDW (11.8-14.1) % 13.6 Plt Count (130-400) 10^3/uL 142 MPV (8.0-11.0) fL 10.0 Immature Gran % % 0.3 Neutrophils % % 74.3 Lymphocytes % % 13.6 Monocytes % % 10.2 Eosinophils % % 1.3 Basophils % % 0.3 Nucleated RBC % (0.0-0.3) % 0.0 Absolute Neutrophils (1.2-6.7) 10^3/uL 5.19 Absolute Lymphocytes (1.2-3.4) 10^3/uL 0.95 L Absolute Monocytes (0.1-0.8) 10^3/uL 0.71 Absolute Eosinophils (0.0-0.7) 10^3/uL 0.09 Absolute Basophils (0.0-0.2) 10^3/uL 0.02 Sodium (136-145) mmol/L 141 Potassium (3.5-5.1) mmol/L 4.0 Chloride (98-107) mmol/L 105 Carbon Dioxide (21.0-32.0) mmol/L 26.3 Anion Gap (3-11) mmol/L 9.7 BUN (7-18) mg/dL 22 H Creatinine (0.70-1.30) mg/dL 0.7 Est GFR (CKD-EPI 2020) (mL/min/1.73m2) 96.09 Glucose (74-106) mg/dL 128 H Calcium (8.5-10.1) mg/dL 9.2 Magnesium (1.8-2.4) mg/dL 2.0 Total Bilirubin (0.2-1.0) mg/dL 1.0 AST (15-37) U/L 18 ALT (16-63) U/L 26 Alkaline Phosphatase (46-116) U/L 75 Troponin I (<or=76) ng/L 11 13 NT-Pro-B Natriuret Pep (<300) pg/mL 522 H Total Protein (6.4-8.2) g/dL 6.7 Albumin (3.4-5.0) g/dL 3.8 ECG Data Prior ECG tracings: available for review Critical Care Time Critical Care Time Critical Care Time: Yes Total Critical Care Time: 45 Attestation: I spent greater than 35 minutes addressing this patient's acute life threatening illness. This time was spent engaged in actions directly related to the patient's care. Failure to initiate these interventions would have likely resulted in clinically significant or life threatening deterioration in the patients condition. 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, lumbosacral region Mitral regurgitation BPH without urinary obstruction Dystrophia unguium Acquired talipes planus Neuropathy Left rotator cuff tear DOI: 01/31/18 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
[2025-02-07 17:12] LABS: Abs Immature Grans 0.02 10^3/uL (0.0-0.06); HCT 46.3 % (40.0-50.0); HGB 15.4 g/dL (13.5-17.5); Immature Grans % 0.3 %; MCH 31.5 pg (27.0-33.0); MCHC 33.3 % (32.0-36.0); MCV 95 fL (80-95); MPV 10.0 fL (8.0-11.0); Platelet Count 142 10^3/uL (130-400); RBC 4.89 10^6/uL (4.36-5.78); RDW 13.6 % (11.8-14.1); RDW-SD 47.3 fL; WBC 6.98 10^3/uL (4.4-10.8)
[2025-02-07] MEDS: Normal Saline 500 ML IV ×2 (17:19→19:40)
[2025-02-07 17:34] LABS: ALT 26 U/L (16-63); AST 18 U/L (15-37); Albumin 3.8 g/dL (3.4-5.0); Alkaline Phosphatase 75 U/L (46-116); Anion Gap 9.7 mmol/L (3-11); BUN 22 mg/dL (7-18); Bilirubin, Total 1.0 mg/dL (0.2-1.0); CO2 26.3 mmol/L (21.0-32.0); Calcium 9.2 mg/dL (8.5-10.1); Chloride 105 mmol/L (98-107); Estimated GFR 96.09 (mL/min/1.73m2); Glucose 128 mg/dL (74-106); Magnesium 2.0 mg/dL (1.8-2.4); NT-proBNP 522 pg/mL (<300); Potassium 4.0 mmol/L (3.5-5.1); Sodium 141 mmol/L (136-145); Total Protein 6.7 g/dL (6.4-8.2); Troponin I 11 ng/L (<or=76)
[2025-02-07] MEDS: Normal Saline - Diluent 50 ML VIAL IJ (17:56)
[2025-02-07] MEDS: Omnipaque 350 MG/ML 100 ML BTL 70 ML IJ (17:57)
--- NOTE | 2025-02-07 18:15 | RT.EKG_ITS ---
APPROVED REPORT Exam: Resting ECG Reason for Exam: Repeat Patient Location: E HR:76 bpm ECG Measurements Heart Rate 76 AXIS UT 187 P -9 QRSd 126 QRS -55 QT 402 T 62 QTc 437 Conclusion Sinus rhythm...normal P axis, V-rate 60- 99 Paired ventricular premature complexes...sequence of 2 V complexes I have reviewed and interpreted ECG and agree with software generated interpretation.
[2025-02-07 18:47] LABS: Troponin I 13 ng/L (<or=76)
--- NOTE | 2025-02-07 19:00 | DI.CT_ITS ---
Exam(s) CT BRAIN NECK CTA EXAM: CT BRAIN NECK CTA CLINICAL HISTORY: Dizziness, syncope. TECHNIQUE: Imaging Protocol: Axial CT angiography was performed with multi- slice acquisition and multi-planar and/or 3D reconstructions. CONTRAST MATERIAL: Intravenous: Omnipaque 350 Contrast volume:70 mL COMPARISON: CT CT HEAD WO from 07/03/2023 FINDINGS: CTA Neck W: Aortic arch anatomy: The aortic arch anatomy is bovine configuration. There is no significant stenosis at the origin of the great vessels off of the aortic arch. Anterior circulation: Both common carotid arteries ascend with normal luminal diameters. There is no significant plaque at the level the carotid bulbs. There is some mild calcified plaque on the posterior wall the proximal right ICA but with minimal less than 20 percent stenosis. There is no significant stenosis in the proximal left ICA. Both internal carotid arteries are nicely patent in the upper neck and skull base-carotid canals. Posterior circulation: Both vertebral arteries originate in conventional fashion off of the subclavian arteries and there is no obvious stenosis at the origin of the vertebral arteries. Both vertebral arteries exhibit normal luminal diameters within the foramen transversarium. Left vertebral artery is dominant. There is no evidence of vertebral artery thrombosis nor dissection. There is mild calcified plaque on the lateral wall of the distal left vertebral artery but without significant hemodynamically significant stenosis. Both vertebral arteries contribute to the formation of the basilar artery at the skull base. CTA Brain W: Anterior circulation: Both internal carotid arteries are patent in the skull base-carotid canals as well as within the cavernous sinuses. There is some circumferential calcified plaque in the intra cavernous aspects of both internal carotid arteries but without significant stenosis therein. The supraclinoid aspects of the ICAs are patent. Both A1 segments are patent as are the anterior cerebral arteries and there is no evidence of aneurysm at the level of the anterior communicating artery. Both middle cerebral arteries are patent without evidence of hemodynamically significant stenosis nor intraluminal thrombus. No dissection. Posterior circulation: Basilar artery ascends without significant stenosis. Distally it gives off superior cerebellar arteries. Above this level it terminates as patent bilateral posterior cerebral arteries. Above this level the basilar artery terminates as patent bilateral posterior cerebral arteries. There is no evidence of aneurysm at the tip of the basilar artery nor elsewhere in the [id number]. CT BRAIN: There is no evidence of intracranial hemorrhage, mass effect, or shift of midline structures. There are no extra-axial fluid collections. Ventricles are not enlarged or shifted. There are no ring enhancing lesions in the brain and no abnormal meningeal enhancement. IMPRESSION: 1. Patent carotid arteries in the neck. Mild calcified plaque in the proximal right ICA in the neck but no hemodynamically significant stenosis on either side. 2. Patent vertebral arteries. Mild calcified plaque noted on the lateral wall the left vertebral artery at the skull base but without hemodynamically significant stenosis. Both vertebral arteries contribute to the formation of the basilar artery at the skull base. 3. Patent intracranial arteries. Also no aneurysms and no obvious evidence of vascular malformation. 4. No acute intracranial findings. No abnormal enhancing intracranial findings. Report called by myself to ER provider on 02/07/2025 at 7:24 p.m. RADIATION DOSE DELIVERED: 2,245.97mGy.cm Total DLP DATA REPOSITORY: All CT scans at this facility are submitted to the National Radiology Data Registry (NRDR) Dose Index Registry (DIR) with the [employer] (ACR). RADIATION OPTIMIZATION: All CT scans at this facility use at least one of these dose optimization techniques: automated exposure control; mA and/or kV adjustment per patient size (includes targeted exams where dose is matched to clinical indication); or iterative reconstruction.
--- NOTE | 2025-02-07 19:03 | DI.RAD_ITS ---
Exam(s) XR CHEST 1V IN DI DEPT EXAM: XR CHEST 1V IN DI DEPT CLINICAL HISTORY: SOB, Syncope. TECHNIQUE: 2D digital imaging was performed. COMPARISON: CR XR CHEST 2V PA LATERAL from 10/02/2024 FINDINGS: Single AP portable view. Heart size is upper normal. The mediastinum is not widened and appears unchanged. There is again noted mild-moderate elevation left hemidiaphragm which appears to be due to air-filled stomach. There is platelike atelectasis in the right lung base. Mild increased markings in the left lower lobe. Possible small left pleural effusion. No evidence of pulmonary edema. IMPRESSION: Bibasilar lung findings as above. DATA REPOSITORY: RADIATION DOSE DELIVERED:
[2025-02-07 20:26] LABS: Glucose Negative (Negative)
[2025-02-07 20:37] LABS: C & S Indicated? Yes; WBC >50 HPF (0-5)
[2025-02-07] MEDS: Normal Saline 1,000 ML 125 ML IV (20:44)
[2025-02-07] MEDS: cefTRIAXone 1 GM/50 ML BAG IVPB (20:55)
--- NOTE | 2025-02-07 21:10 | NUR.NOTE ---
Report given to Lulú BARDALES at [facility]. Pt sent via EMS with RN. All belongings, including wallet, shoes, upper/lower dentures and glasses, etc sent with pt to [facility].
== END 2025-02-07 21:23 | disposition short-term general hospital (02) ==
PROVIDERS: Emergency Provider Registered Nurse Emergency; PCP Nurse Practitioner Adult Health
DX: I95.9 Hypotension, unspecified (principal); E86.9 Volume depletion, unspecified; I45.2 Bifascicular block; I50.9 Heart failure, unspecified; J44.9 Chronic obstructive pulmonary disease, unspecified; S51.811A Laceration without foreign body of right forearm, initial encounter; Z79.82 Long term (current) use of aspirin; Z87.891 Personal history of nicotine dependence; W18.39XA Other fall on same level, initial encounter; Y93.89 Activity, other specified; Y92.89 Other specified places as the place of occurrence of the external cause
CPT/HCPCS: 70496; 70498; 80053; 87077; 93005; 96361; 96374; 99285; 99291; 71045; 81003; 81015; 83735; 83880; 84484; 85025; 87086; 87186; 93010; J0696; J3490

== ENCOUNTER 2025-02-17 09:05 | Emergency (ER) | payer OTHER, SELFPAY ==
[2025-02-17] VITALS (81 sets, daily range): BP systolic 90–138; BP diastolic 58–89; PULSE 44–92; RESP 10–29; TEMP 36.7; O2SAT 90–97
--- NOTE | 2025-02-17 09:00 | RT.EKG_ITS ---
APPROVED REPORT Exam: Resting ECG Reason for Exam: low bp Patient Location: E HR:63 bpm ECG Measurements Heart Rate 63 AXIS DE 178 P 14 QRSd 126 QRS -49 QT 403 T 42 QTc 410 Conclusion Sinus rhythm...normal P axis, V-rate 60- 99 Ventricular premature complex...V complex w/ short R-R interval No Occlusion NC
[2025-02-17 12:14] LABS: Abs Immature Grans 0.02 10^3/uL (0.0-0.06); HCT 43.9 % (40.0-50.0); HGB 14.5 g/dL (13.5-17.5); Immature Grans % 0.3 %; MCH 31.6 pg (27.0-33.0); MCHC 33.0 % (32.0-36.0); MCV 96 fL (80-95); MPV 9.5 fL (8.0-11.0); Platelet Count 163 10^3/uL (130-400); RBC 4.59 10^6/uL (4.36-5.78); RDW 13.8 % (11.8-14.1); RDW-SD 48.4 fL; WBC 7.62 10^3/uL (4.4-10.8)
[2025-02-17] MEDS: Normal Saline 500 ML IV (12:21)
[2025-02-17 13:04] LABS: Glucose Negative (Negative)
[2025-02-17 13:14] LABS: Lab Add On Test DONE
[2025-02-17 13:21] LABS: ALT 27 U/L (16-63); AST 21 U/L (15-37); Albumin 3.9 g/dL (3.4-5.0); Alkaline Phosphatase 73 U/L (46-116); Anion Gap 7.0 mmol/L (3-11); BUN 20 mg/dL (7-18); Bilirubin, Total 0.9 mg/dL (0.2-1.0); CO2 30.0 mmol/L (21.0-32.0); Calcium 9.1 mg/dL (8.5-10.1); Chloride 104 mmol/L (98-107); Estimated GFR 96.09 (mL/min/1.73m2); Glucose 99 mg/dL (74-106); NT-proBNP 953 pg/mL (<300); Potassium 4.3 mmol/L (3.5-5.1); Sodium 141 mmol/L (136-145); Total Protein 6.8 g/dL (6.4-8.2); Troponin I 17 ng/L (<or=76)
[2025-02-17 13:21] LABS: C & S Indicated? No; RBC 0-2 HPF (0-2)
[2025-02-17 13:22] LABS: TSH (W/Ref FT4) 3.41 uIU/mL (0.36-3.74)
[2025-02-17 14:07] LABS: Magnesium 2.0 mg/dL (1.8-2.4)
--- NOTE | 2025-02-17 14:07 | DI.RAD_ITS ---
Exam(s) XR CHEST 2V PA LATERAL EXAM: XR CHEST 2V PA LATERAL CLINICAL HISTORY: shortness of breath. TECHNIQUE: 2D digital imaging was performed. COMPARISON: CR XR CHEST 1V IN DI DEPT from 02/07/2025 FINDINGS: 2 views: Heart size is upper normal. The mediastinum is unchanged. There is a somewhat tortuous descending thoracic aorta again noted.. Elevated left hemidiaphragm again noted. Atelectasis noted in the right lung base. Also mild infiltrate. Mild increased markings in the mid right lung noted, slightly more so than previous. No obvious pleural effusions. IMPRESSION: Lung base findings as above. There also appears to be some mild infiltrate in the mid right lung field. No obvious pleural effusions. DATA REPOSITORY: RADIATION DOSE DELIVERED:
--- NOTE | 2025-02-17 14:15 | RT.EKG_ITS ---
APPROVED REPORT Exam: Resting ECG Reason for Exam: rythm change Patient Location: E HR:54 bpm ECG Measurements Heart Rate 54 AXIS HI 174 P 30 QRSd 128 QRS -53 QT 428 T 24 QTc 407 Conclusion Sinus bradycardia...rate< 60 Left bundle branch block...QRSd>120, broad/notched R No Occlusion SC
--- NOTE | 2025-02-17 14:15 | RT.EKG_ITS ---
APPROVED REPORT Exam: Resting ECG Reason for Exam: weakness Patient Location: E HR:53 bpm ECG Measurements Heart Rate 53 AXIS MT [id number] P [id number] QRSd 205 QRS 102 QT 509 T -72 QTc 481 Conclusion Atrial fibrillation...? atrial activity Ventricular premature complex...V complex w/ short R-R interval Nonspecific intraventricular conduction delay...QRSd >115mS, not LBBB/RBBB Repol abnrm suggests ischemia, diffuse leads...ST-T neg, ant/lat/inf No Occlusion RI
[2025-02-17] MEDS: Lactated Ringers 1,000 ML 125 ML IV (15:20)
--- NOTE | 2025-02-17 15:26 | ED.GENADUL_ITS ---
Discharge Plan Discharge Details Chief Complaint: Dizzy/Sync Primary Care Provider: Jackeline Ramesh ED Provider: Darcie Ledezma Home Meds and New Rx's Prescriptions: No Action aspirin 81 mg Tablet,Chewable 81 mg PO DAILY sertraline 25 mg Tablet 75 mg PO DAILY ipratropium-albuterol 0.5 mg-3 mg(2.5 mg base)/3 mL Solution For Nebulization 3 ml INHALATION TID PRN furosemide 20 mg Tablet 20 mg PO DAILY metoprolol succinate 25 mg Tablet Extended Release 24 Hr 25 mg PO DAILY alfuzosin 10 mg Tablet Extended Release 24 Hr 10 mg PO DAILY budesonide-formoterol 160-4.5 mcg/actuation Hfa Aerosol Inhaler 2 puff INHALATION BID Eucerin Cream 1 applic TOPICAL BID PRN tiotropium bromide 2.5 mcg/actuation Mist 2 puff INHALATION DAILY HPI General Date/Time Provider Initiated Documentation: 02/17/25 09:16 . HPI Narrative: 74-year-old male with new onset atrial fibrillation presenting with episodes of near syncope. Diagnosed with atrial fibrillation on 02/07/2025, initiated on low-dose Eliquis at [facility]. Experienced frequent near syncope episodes at home, including 4 episodes last night. No additional syncope since 02/07/2025. Asymptomatic at rest. No recent head injuries, dizziness, or shortness of breath. Taking metoprolol as prescribed. Related Data Home Medications ?Medication ?Instructions ?Recorded ?Confirmed aspirin 81 mg chewable tablet 81 mg PO DAILY 05/04/18 07/03/23 alfuzosin 10 mg tablet,extended 10 mg PO DAILY 0 07/03/23 release 24 hr budesonide-formoterol HFA 160 2 puff inhalation BID 07/03/23 mcg-4.5 mcg/actuation aerosol inhaler furosemide 20 mg tablet 20 mg PO DAILY 03/10/2006/08 ipratropium 0.5 mg-albuterol 3 mg 3 ml inhalation TID PRN 03/10/20 07/03/23 (2.5 mg base)/3 mL nebulization soln lanolin alcohols-mineral 1 applic topical BID PRN 11/2403/20/20 oil-w.petrolatum-ceresin topical cream (Eucerin topical cream) metoprolol succinate 25 mg 25 mg PO DAILY 03/10/20 tablet,extended release 24 hr sertraline 25 mg tablet 75 mg PO DAILY 03/10/2006/08 tiotropium bromide 2.5 2 puff inhalation DAILY 11/2407/03/23 mcg/actuation mist for inhalation Allergies Allergy/AdvReac Type Severity Reaction Status Date / Time No Known Allergies Allergy Verified 07/03/23 13:02 General Stated Complaint: Dizzy/Sync PANCHO: 2 Exam Narrative Exam Narrative: General Appearance: Awake, alert, oriented, answering questions appropriately. Vital signs: BP 106/70, orthostatic changes from 170/60 to 93/65. HEENT: PERRLA, EOMI. Respiratory: Within normal limits. Cardiovascular: BP 106/70, orthostatic changes from 107/60 to 93/65. No murmur sinus bradycardia Skin: Warm and dry, no rash. Neurological: Negative [id number], heel wang, and pronator drift tests. Course Vital Signs Vital signs: Vital Signs Temperature 36.7 C 02/17/25 09:24 Pulse 60 02/17/25 09:24 Respiratory Rate 18 02/17/25 09:24 Blood Pressure 95/63 L 02/17/25 09:24 Pulse Oximetry 94 02/17/25 09:24 Temperature 36.7 C 02/17/25 09:24 Temperature Source Oral 02/17/25 09:24 Pulse 60 02/17/25 13:40 Pulse 58 L 02/17/25 13:30 Respiratory Rate 19 02/17/25 13:30 Respiratory Effort Normal, Non-Labored 02/17/25 12:13 Respiratory Depth Normal 02/17/25 12:13 Respiratory Pattern Normal 02/17/25 12:13 Blood Pressure 129/69 02/17/25 12:46 Blood Pressure Mean 91 02/17/25 12:46 Blood Pressure Position Sitting 02/17/25 09:24 Pulse Oximetry 94 02/17/25 13:40 Oxygen Delivery Method Room Air 02/17/25 09:24 Oxygen Flow Rate 0 02/17/25 09:24 Pain Level 0 02/17/25 09:24 Lab/Test Results Lab/Test Results: Laboratory Tests Range/Units 02/17/25 02/17/25 02/17/25 12:00 12:10 12:48 WBC (4.4-10.8) 10^3/uL 7.62 RBC (4.36-5.78) 10^6/uL 4.59 Hgb (13.5-17.5) g/dL 14.5 Hct (40.0-50.0) % 43.9 MCV (80-95) fL 96 H MCH (27.0-33.0) pg 31.6 MCHC (32.0-36.0) % 33.0 RDW (11.8-14.1) % 13.8 Plt Count (130-400) 10^3/uL 163 MPV (8.0-11.0) fL 9.5 Immature Gran % % 0.3 Neutrophils % % 73.8 Lymphocytes % % 14.6 Monocytes % % 9.7 Eosinophils % % 1.2 Basophils % % 0.4 Nucleated RBC % (0.0-0.3) % 0.0 Absolute Neutrophils (1.2-6.7) 10^3/uL 5.63 Absolute Lymphocytes (1.2-3.4) 10^3/uL 1.11 L Absolute Monocytes (0.1-0.8) 10^3/uL 0.74 Absolute Eosinophils (0.0-0.7) 10^3/uL 0.09 Absolute Basophils (0.0-0.2) 10^3/uL 0.03 Sodium (136-145) mmol/L 141 Potassium (3.5-5.1) mmol/L 4.3 Chloride (98-107) mmol/L 104 Carbon Dioxide (21.0-32.0) mmol/L 30.0 Anion Gap (3-11) mmol/L 7.0 BUN (7-18) mg/dL 20 H Creatinine (0.70-1.30) mg/dL 0.7 Est GFR (CKD-EPI 2020) (mL/min/1.73m2) 96.09 Glucose (74-106) mg/dL 99 Calcium (8.5-10.1) mg/dL 9.1 Magnesium (1.8-2.4) mg/dL Total Bilirubin (0.2-1.0) mg/dL 0.9 AST (15-37) U/L 21 ALT (16-63) U/L 27 Alkaline Phosphatase (46-116) U/L 73 Troponin I (<or=76) ng/L 17 Cancelled NT-Pro-B Natriuret Pep (<300) pg/mL 953 H Total Protein (6.4-8.2) g/dL 6.8 Albumin (3.4-5.0) g/dL 3.9 TSH (0.36-3.74) uIU/mL 3.41 Urine Color (Yellow) Yellow Urine Clarity (Clear) Clear Urine pH (5-8) 5.5 Ur Specific [place] (1.005-1.025) 1.015 Urine Protein (Neg-Trace) mg/dL Negative Urine Ketones (Negative) mg/dL Trace H Urine Blood (Negative) Negative Urine Nitrite (Negative) Negative Urine Bilirubin (Negative) Negative Urine Urobilinogen (Up to 0.2) mg/dL 0.2 Ur Leukocyte Esterase (Negative) Small H Urine RBC (0-2) HPF 0-2 Urine WBC (0-5) HPF 3-5 Ur Epithelial Cells (Negative) HPF Rare Urine Crystals (Negative) HPF Negative Urine Bacteria (Negative) HPF Negative Urine Casts (Negative) LPF Negative Urine Mucus (Negative) Negative Ur Culture Indicated? No Urine Glucose (Negative) mg/dL Negative Add-On Test Request Range/Units 02/17/25 02/17/25 13:00 13:12 WBC (4.4-10.8) 10^3/uL RBC (4.36-5.78) 10^6/uL Hgb (13.5-17.5) g/dL Hct (40.0-50.0) % MCV (80-95) fL MCH (27.0-33.0) pg MCHC (32.0-36.0) % RDW (11.8-14.1) % Plt Count (130-400) 10^3/uL MPV (8.0-11.0) fL Immature Gran % % Neutrophils % % Lymphocytes % % Monocytes % % Eosinophils % % Basophils % % Nucleated RBC % (0.0-0.3) % Absolute Neutrophils (1.2-6.7) 10^3/uL Absolute Lymphocytes (1.2-3.4) 10^3/uL Absolute Monocytes (0.1-0.8) 10^3/uL Absolute Eosinophils (0.0-0.7) 10^3/uL Absolute Basophils (0.0-0.2) 10^3/uL Sodium (136-145) mmol/L Potassium (3.5-5.1) mmol/L Chloride (98-107) mmol/L Carbon Dioxide (21.0-32.0) mmol/L Anion Gap (3-11) mmol/L BUN (7-18) mg/dL Creatinine (0.70-1.30) mg/dL Est GFR (CKD-EPI 2020) (mL/min/1.73m2) Glucose (74-106) mg/dL Calcium (8.5-10.1) mg/dL Magnesium (1.8-2.4) mg/dL 2.0 Total Bilirubin (0.2-1.0) mg/dL AST (15-37) U/L ALT (16-63) U/L Alkaline Phosphatase (46-116) U/L Troponin I (<or=76) ng/L NT-Pro-B Natriuret Pep (<300) pg/mL Total Protein (6.4-8.2) g/dL Albumin (3.4-5.0) g/dL TSH (0.36-3.74) uIU/mL Urine Color (Yellow) Urine Clarity (Clear) Urine pH (5-8) Ur Specific [place] (1.005-1.025) Urine Protein (Neg-Trace) mg/dL Urine Ketones (Negative) mg/dL Urine Blood (Negative) Urine Nitrite (Negative) Urine Bilirubin (Negative) Urine Urobilinogen (Up to 0.2) mg/dL Ur Leukocyte Esterase (Negative) Urine RBC (0-2) HPF Urine WBC (0-5) HPF Ur Epithelial Cells (Negative) HPF Urine Crystals (Negative) HPF Urine Bacteria (Negative) HPF Urine Casts (Negative) LPF Urine Mucus (Negative) Ur Culture Indicated? Urine Glucose (Negative) mg/dL Add-On Test Request DONE Medical Decision Making Initial Assessment: 74-year-old male with new onset atrial fibrillation, experiencing near syncope. Differential Diagnosis: - Atrial fibrillation: New onset, experiencing near syncope. - Ventricular arrhythmia: 12-20 beats obse rved, intermittent hypotension. ED Course: - BP 106/70, orthostatic changes from 170/60 to 93/65. - 12 beats of ventricular rhythm. - Stable electrolytes including mag and potassium. - Continued ventricular arrhythmia (12-20 beats). - Intermittent hypotension. - Intact mentation. - Case discussed with Dr. Brumfield [facility], PAMELLA Koch. - Accepted by Dr. Clarke for transfer. Final Assessment: New onset atrial fibrillation, near syncope, intermittent hypotension, ventricular arrhythmia. Hemodynamically stable, no need for antiarrhythmic or pacing. Clinical Impression: - Atrial fibrillation. - Ventricular arrhythmia. - Intermittent hypotension. Disposition: - Transferred to [facility], Dr. Clarke accepting provider. [facility] Components Evaluation: - Number of Differential Diagnoses or Management Options: Atrial fibrillation, ventricular arrhythmia. - Amount and Complexity of Data Reviewed: BP measurements, electrolyte levels, case discussion with Dr. Brumfield [facility], PAMELLA Koch. - Risk of Complication and Morbidity or Mortality: Intermittent hypotension, ventricular arrhythmia. 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, lumbosacral region Mitral regurgitation BPH without urinary obstruction Dystrophia unguium Acquired talipes planus Neuropathy Left rotator cuff tear DOI: 01/31/18 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
[2025-02-17] MEDS: LORazepam 0.5 MG TAB PO (17:16)
== END 2025-02-17 20:26 | disposition short-term general hospital (02) ==
PROVIDERS: Emergency Provider Physician Assistant; PCP Nurse Practitioner Adult Health
DX: I95.9 Hypotension, unspecified (principal); I50.9 Heart failure, unspecified; E86.9 Volume depletion, unspecified; Z79.01 Long term (current) use of anticoagulants; R55 Syncope and collapse
CPT/HCPCS: 99285 ×2; 36415; 80053; 93005; 96360; 96361; 71046; 81003; 81015; 83735; 83880; 84443; 84484; 85025; 93010